=== PATIENT | female | born 1965 ===

== ENCOUNTER 2017-04-05 20:22 | Inpatient (IN) | payer MEDICARE, MEDICAID, OTHER ==
[2017-04-05] MEDS ORDERED: Lidocaine 1% Inj (20ml) IJ STA (21:05)
--- NOTE | 2017-04-05 21:12 | ED PDOC ---
Arrival/HPI - General Chief Complaint: Abnormal Skin Integrity Time Seen by Provider: 04/05/17 20:59 Historian: Patient - History of Present Illness Narrative History of Present Illness (Text): 04/05/17 21:05 A 51 year old female, whose past medical history includes diabetes, presents to the emergency department with a complaint of 2 day duration area of induration on the left suprapubic abdomen. The patient states that the area of induration has been slightly draining, and she has been changing the bandages about every hour. The patient states that she has never had the area drained in the emergency department or experienced these symptoms before. The patient denies fevers, chills, headache, dizziness, chest pain, shortness of breath, dyspnea on exertion, cough, nausea, vomiting, diarrhea, back pain, neck pain, urinary/ bowel changes, or any other complaint. PMD: Dr. Geo Brenner Time/Duration: Other (2 Days) Symptom Onset: Gradual Symptom Course: Unchanged Activities at Onset: Light Context: Home Past Medical History - Provider Review Nursing Documentation Reviewed: Yes - Infectious Disease Hx of Infectious Diseases: None - Cardiac Hx Hypertension: Yes - Pulmonary Hx Asthma: Yes Hx Sleep Apnea: Yes - Neurological Other/Comment: neuropathy - Endocrine/Metabolic Hx Diabetes Mellitus Type 2: Yes - Musculoskeletal/Rheumatological Hx Falls: Yes Hx Osteoarthritis: Yes - Psychiatric Hx Anxiety: Yes Hx Depression: Yes Hx Substance Use: No - Surgical History Hx Hysterectomy: Yes (partial) Hx Orthopedic Surgery: Yes (Right ankle surgery) - Suicidal Assessment Feels Threatened In Home Enviroment: No Family/Social History - Physician Review Nursing Documentation Reviewed: Yes Family/Social History: Other (Non- contributory) Smoking Status: Current Some Days Smoker Hx Alcohol Use: Yes (Occasionally) Frequency of alcohol use: Socially Hx Substance Use: No Hx Substance Use Treatment: No Allergies/Home Meds Allergies/Adverse Reactions: Allergies No Known Allergies Allergy (Verified 04/05/17 20:53) Home Medications: Home Meds Medication Instructions Recorded Confirmed Losartan/Hydrochlorothiazide 1 tab PO DAILY 03/01/12 04/05/17 [Hyzaar 12.5 mg-100 mg] Metformin HCl [Metformin] 1,000 mg PO BID 03/01/12 04/05/17 Review of Systems - Review of Systems Respiratory: absent: SOB Cardiovascular: absent: Chest Pain Gastrointestinal: absent: Abdominal Pain, Diarrhea, Nausea, Vomiting Skin: Abscess Neurological: absent: Headache Physical Exam Vital Signs Reviewed: Yes Vital Signs Temp Pulse Resp BP Pulse Ox 04/05/17 22:36 101.0 F H 97 H 18 119/71 99 04/05/17 20:49 98.5 F 115 H 18 129/82 100 Appearance: Positive for: Well-Appearing, Non-Toxic, Comfortable Pain Distress: None Mental Status: Positive for: Alert and Oriented X 3 - Systems Exam Extroacular Muscles: Present: EOMI Mouth: Present: Moist Mucous Membranes Pharnyx: Present: Normal Respiratory/Chest: Present: Clear to Auscultation, Accessory Muscle Use. No: Respiratory Distress Cardiovascular: Present: Regular Rate and Rhythm Abdomen: No: Tenderness, Distention Neurological: Present: GCS=15, Motor Func Grossly Intact, Normal Sensory Function Skin: Present: Warm (Left suprapubic area), Induration (4cm area of induration of the left suprapubic area. Central area appears to be draining. ) Psychiatric: Present: Alert, Oriented x 3 Medical Decision Making ED Course and Treatment: Progress Notes: 04/05/17 21:37: Procedure: Incision & Drainage Performed by the emergency provider Indication: Abscess Location: Left Suprapubic Abdomen Preparation: The area was prepped and draped in the usual sterile fashion and was cleansed with chloroprep. Local infiltration of Lidocaine 1% was used for anesthesia. Procedure: The most fluctuant portion of the abscess was incised with a #15 scalpel. Small amount of purulent material was expressed and abscess was probed to break up loculation. A dressing was applied by the RN Post-Procedure: The patient tolerated the procedure well, and there were no immediate complications. Cultured: YES 04/05/17 22:32: Will admit patient. Rectal temperature: 101. 04/05/17 23:29: Discussed case in detail with Dr. Palafox. Will admit patient to her service. - Lab Interpretations Lab Results: 04/05/17 22:00 04/05/17 22:00 Lab Results 04/05/17 22:00: Sodium 138, Chloride 103, Potassium 4.1, Carbon Dioxide 25, Anion Gap 14, BUN 15, Creatinine 1.1, Est GFR ( Amer) > 60, Est GFR (Non- Af Amer) 52, Random Glucose 133 H, Calcium 9.2, Total Bilirubin 0.7, AST 24, ALT 28, Alkaline Phosphatase 83, Total Protein 7.3, Albumin 4.0, Globulin 3.3, Albumin/Globulin Ratio 1.2 04/05/17 22:00: pO2 60 H, VBG pH 7.38, VBG pCO2 45.0, VBG HCO3 26.6, VBG Total CO2 28.0, VBG O2 Sat (Calc) 94.3 H, VBG Base Excess 1.0, VBG Potassium 4.6, Sodium 138.0, Chloride 105.0, Glucose 135 H, Lactate 1.6, FiO2 21.0, Venous Blood Potassium 4.6 04/05/17 22:00: WBC 18.4 H, RBC 4.55, Hgb 13.2, Hct 40.1, MCV 88.1, MCH 29.0, MCHC 32.9, RDW 13.7, Plt Count 362, MPV 9.8, Gran % 76.2 H, Lymph % (Auto) 15.7 L, [place] % (Auto) 7.6 H, Eos % (Auto) 0.3 L, Baso % (Auto) 0.2, Gran # 13.98 H, Lymph # 2.9, [place] # 1.4 H, Eos # 0.1, Baso # 0.03 - Medication Orders Current Medication Orders: Acetaminophen (Tylenol 325mg Tab) 650 mg PO Q4H PRN PRN Reason: Fever >100.4 F Acetaminophen (Tylenol 325mg Tab) 650 mg PO Q4 PRN PRN Reason: Pain, moderate (4-7) Vancomycin HCl 2 gm/ Sodium (Chloride) 500 mls @ 170 mls/hr IVPB ONCE ONE Stop: 04/06/17 01:41 Vancomycin HCl (Vancomycin 1gm) 1 gm in 250 mls @ 167 mls/hr IVPB Q12 [facility] Sodium Chloride (Sodium Chloride 0.45%) 1,000 mls @ 100 mls/hr IV .Q10H [facility] Piperacillin Sod/Tazobactam Sod (Zosyn 3.375 In Ns 100ml) 100 mls @ 200 mls/hr IVPB Q6 [facility] PRN Reason: Protocol Stop: 04/06/17 12:29 Insulin Human Regular (Humulin R Low) 0 units SC ACHS [facility] PRN Reason: Protocol Losartan Potassium (Cozaar) 100 mg PO DAILY [facility] Discontinued Medications Acetaminophen (Tylenol 325mg Tab) 975 mg PO STAT STA Stop: 04/05/17 22:32 Last Admin: 04/05/17 22:48 Dose: 975 mg MAR Pain/Vitals Document 04/05/17 22:48 SC (Rec: 04/05/17 22:48 SC [id number]) Pain Reassessment Is This A Pain ReAssessment? No Sleep Is patient sleeping during reassessment? No Presence of Pain Presence of Pain No Sodium Chloride (Sodium Chloride 0.9%) 1,000 mls @ 999 mls/hr IV .Q1H1M STA Stop: 04/05/17 22:51 Last Admin: 04/05/17 22:33 Dose: 999 mls/hr eMAR Start Stop Document 04/05/17 22:33 SC (Rec: 04/05/17 22:33 SC [id number]) Intravenous Solution Start Date 04/05/17 Start Time 22:33 End Date 04/05/17 End time 23:33 Total Infusion Time 60 Ampicillin Sodium/Sulbactam (Sodium 3 gm/ Sodium Chloride) 100 mls @ 100 mls/ hr IVPB STAT STA PRN Reason: Protocol Stop: 04/05/17 22:51 Last Admin: 04/05/17 23:15 Dose: 100 mls/hr eMAR Start Stop Document 04/05/17 23:15 SC (Rec: 04/06/17 00:13 SC [id number]) Intravenous Solution Start Date 04/05/17 Start Time 23:15 End Date 04/06/17 End time 00:13 Total Infusion Time 58 Sodium Chloride (Sodium Chloride 0.9%) 1,000 mls @ 999 mls/hr IV .Q1H1M STA Stop: 04/05/17 23:30 Lidocaine HCl (Lidocaine 1% (20ml)) 20 ml IJ STAT STA Stop: 04/05/17 21:06 Last Admin: 04/05/17 21:43 Dose: 20 ml Comments: Given to Vancomycin HCl (Vancomycin Inj) 2,000 mg IVPB STAT STA PRN Reason: Protocol Stop: 04/05/17 21:53 - Scribe Statement The provider has reviewed the documentation as recorded by the Keon Garcia Provider Scribe Attestation: All medical record entries made by the Keon were at my direction and personally dictated by me. I have reviewed the chart and agree that the record accurately reflects my personal performance of the history, physical exam, medical decision making, and the department course for this patient. I have also personally directed, reviewed, and agree with the discharge instructions and disposition. Disposition/Present on Arrival - Present on Arrival Any Indicators Present on Arrival: No History of DVT/PE: No History of Uncontrolled Diabetes: No Urinary Catheter: No History of Decub. Ulcer: No History Surgical Site Infection Following: None - Disposition Have Diagnosis and Disposition been Completed?: Yes Diagnosis: Abscess, Cellulitis, Sepsis Disposition: HOSPITALIZED Disposition Time: 22:32 Patient Problems: Current Active Problems Problem Status Onset Abscess Acute Cellulitis Acute Sepsis Acute Condition: STABLE
[2017-04-05] MEDS ORDERED: Lidocaine 1% Inj (20ml) ONE (21:28)
[2017-04-05] MEDS ORDERED: Sodium Chloride 0.9% 1,000 ML IV STA ×2 (21:51→22:30)
[2017-04-05] MEDS ORDERED: Vancomycin 500 mg Inj IVPB STA (21:52)
[2017-04-05 22:35] LABS: VENOUS BLOOD PH 7.38 (7.32-7.43)
[2017-04-05 22:37] LABS: BASO # 0.03 K/mm3 (0.0-2.0); BASO % 0.2 % (0.0-3.0); EOS # 0.1 (0.0-0.7); EOS % 0.3 % (1.5-5.0); GRAN # 13.98 (1.4-6.5); GRAN % 76.2 % (50.0-68.0); HEMATOCRIT 40.1 % (36.0-48.0); LYMPH # 2.9 (1.2-3.4); LYMPH % 15.7 % (22.0-35.0); MEAN CELL VOLUME 88.1 fl (80.0-105.0); MEAN CORPUSCULAR HGB CONC 32.9 g/dl (31.0-37.0); MEAN PLATELET VOLUME 9.8 fl (7.0-11.0); MONO # 1.4 (0.1-0.6); MONO % 7.6 % (1.0-6.0); RED CELL DISTRIBUTION WIDTH 13.7 % (11.5-14.5); WHITE BLOOD COUNT 18.4 10^3/ul (4.5-11.0)
[2017-04-05 22:43] LABS: ALB/GLOB RATIO 1.2 (1.1-1.8); BILIRUBIN,TOTAL 0.7 mg/dL (0.2-1.3); CALCIUM 9.2 mg/dL (8.4-10.5); GFR AFRICAN-AMERICAN > 60; GLUCOSE,RANDOM 133 mg/dL (70-110); TOTAL PROTEIN 7.3 g/dL (5.8-8.3)
[2017-04-05 22:45] LABS: ALKALINE PHOSPHATASE 83 U/L (38-126); ALT/SGPT 28 U/L (7-56); AST/SGOT 24 U/L (14-36); BLOOD UREA NITROGEN 15 mg/dL (7-21); CARBON DIOXIDE 25 mmol/L (21-33); CHLORIDE 103 mmol/L (98-107); POTASSIUM 4.1 mmol/L (3.6-5.0); SODIUM 138 mmol/L (132-148)
[2017-04-05] MEDS ORDERED: Vancomycin 2 GM in Sodium Chloride 0.9% 500 ML IVPB ONE (22:45)
[2017-04-05] MEDS ORDERED: Vancomycin 1 g Inj IVPB SCH (23:30)
[2017-04-06] MEDS: Sodium Chloride 0.45% 1,000 ML IV SCH ×3 (01:02→20:33)
[2017-04-06 01:45] VITALS: BMI 56.5
[2017-04-06] MEDS ORDERED: DiphenhydrAMINE 50 mg/ml Inj IVP STA (02:22)
[2017-04-06] MEDS: Piperacillin/Tazobact 3.375 gm 100 ML IVPB SCH ×2 (06:49→12:14)
[2017-04-06 07:15] LABS: HEMATOCRIT 39.5 % (36.0-48.0); MEAN CELL VOLUME 88.4 fl (80.0-105.0); MEAN CORPUSCULAR HEMOGLOBIN 29.1 pg (25.0-35.0); MEAN CORPUSCULAR HGB CONC 32.9 g/dl (31.0-37.0); MEAN PLATELET VOLUME 10.2 fl (7.0-11.0); RED CELL DISTRIBUTION WIDTH 13.8 % (11.5-14.5); WHITE BLOOD COUNT 17.9 10^3/ul (4.5-11.0)
[2017-04-06] MEDS: Insulin Reg-LOW-Coverage SC SCH ×4 (08:31→22:15)
[2017-04-06 09:34] LABS: BLOOD UREA NITROGEN 13 mg/dL (7-21); CALCIUM 9.3 mg/dL (8.4-10.5); CARBON DIOXIDE 22 mmol/L (21-33); CHLORIDE 107 mmol/L (98-107); GFR AFRICAN-AMERICAN > 60; GLUCOSE,RANDOM 160 mg/dL (70-110); SODIUM 139 mmol/L (132-148)
[2017-04-06] MEDS ORDERED: Vancomycin 1gm in NS 250ml 1 GM/250 ML BAG IVPB SCH (10:00)
--- NOTE | 2017-04-06 10:49 | RAD ---
HISTORY: admission COMPARISON: 01/09/2012 TECHNIQUE: Chest PA and lateral FINDINGS: LUNGS: No active pulmonary disease. PLEURA: No significant pleural effusion identified. No pneumothorax apparent. CARDIOVASCULAR: Normal. OSSEOUS STRUCTURES: No significant abnormalities. VISUALIZED UPPER ABDOMEN: Normal. OTHER FINDINGS: None. IMPRESSION: No active disease.
--- NOTE | 2017-04-06 15:05 | CARD ---
APPROVED REPORT EKG Measurement Heart [id number] <Conclusion> Normal sinus rhythm Lateral infarct, age undetermined Abnormal ECG
--- NOTE | 2017-04-06 18:02 | CP.PCM.CON ---
History of Present Illness - History of Present Illness History of Present Illness: Infectious Disease Consultation: April 06, 2017 51 yo female presenting for 2 day history of induration of the left suprapubic abdomen. There had been drainage that the patient has been changing about every hour. Patient denies fever or chills. I last saw the patient 5 years ago. The patient follow with Dr. Durbin for her PMD. The patient taken Metformin for DM treatment. PMHx: DM, HTN, HLD, morbid obsity, lower extremity edema, neuropathy, asthma, KERRIE, anxiety, depression PSHx: Partial hysterectomy and right ankle surgery. Allergies: Question of Vancomycin allergy versus red man syndrome. Social Hx: Social EtOH 1/3 ppd tobacco use No illicit drug use. Active Medications Acetaminophen (Tylenol 325mg Tab) 650 mg PO Q4H PRN PRN Reason: Fever >100.4 F Acetaminophen (Tylenol 325mg Tab) 650 mg PO Q4 PRN PRN Reason: Pain, moderate (4-7) Last Admin: 04/06/17 14:05 Dose: 650 mg Sodium Chloride (Sodium Chloride 0.45%) 1,000 mls @ 100 mls/hr IV .Q10H [facility] Last Admin: 04/06/17 10:30 Dose: 100 mls/hr Insulin Human Regular (Humulin R Low) 0 units SC ACHS [facility] PRN Reason: Protocol Last Admin: 04/06/17 16:59 Dose: 1 units Losartan Potassium (Cozaar) 100 mg PO DAILY [facility] Last Admin: 04/06/17 10:40 Dose: Not Given Family Hx: none given ROS: No fevers, chills, nausea, vomiting, diarrhea, headaches, dizziness, chest pain , melena, hematuria, hematemesis, hematochezia. Positive abdominal pain, depression, anxiety. Past Patient History - Infectious Disease Hx of Infectious Diseases: None - Past Social History Smoking Status: Current Some Days Smoker - CARDIAC Hx Hypertension: Yes - PULMONARY Hx Asthma: Yes Hx Sleep Apnea: Yes - NEUROLOGICAL Other/Comment: neuropathy - ENDOCRINE/METABOLIC Hx Diabetes Mellitus Type 2: Yes - MUSCULOSKELETAL/RHEUMATOLOGICAL Hx Falls: Yes - PSYCHIATRIC Hx Anxiety: Yes Hx Depression: Yes - SURGICAL HISTORY Hx Hysterectomy: Yes (partial) Hx Orthopedic Surgery: Yes (Right ankle surgery) Meds Allergies/Adverse Reactions: Allergies Allergy/AdvReac Type Severity Reaction Status Date / Time vancomycin Allergy RASH Verified 04/06/17 02:24 - Medications Medications: Current Medications Acetaminophen (Tylenol 325mg Tab) 650 mg PO Q4H PRN PRN Reason: Fever >100.4 F Acetaminophen (Tylenol 325mg Tab) 650 mg PO Q4 PRN PRN Reason: Pain, moderate (4-7) Last Admin: 04/06/17 14:05 Dose: 650 mg Sodium Chloride (Sodium Chloride 0.45%) 1,000 mls @ 100 mls/hr IV .Q10H [facility] Last Admin: 04/06/17 10:30 Dose: 100 mls/hr Insulin Human Regular (Humulin R Low) 0 units SC ACHS [facility] PRN Reason: Protocol Last Admin: 04/06/17 16:59 Dose: 1 units Losartan Potassium (Cozaar) 100 mg PO DAILY [facility] Last Admin: 04/06/17 10:40 Dose: Not Given Physical Exam - Constitutional Appears: Non-toxic, No Acute Distress, Chronically Ill - Head Exam Head Exam: ATRAUMATIC, NORMOCEPHALIC - Eye Exam Eye Exam: EOMI, PERRL Pupil Exam: NORMAL ACCOMODATION, PERRL - ENT Exam ENT Exam: Mucous Membranes Moist, Normal External Ear Exam, TM's Normal Bilaterally - Neck Exam Neck exam: Positive for: Full Rom, Normal Inspection - Respiratory Exam Respiratory Exam: Clear to Auscultation Bilateral, NORMAL BREATHING PATTERN. absent: Rales, Rhonchi, Wheezes - Cardiovascular Exam Cardiovascular Exam: REGULAR RHYTHM, RRR, +S1, +S2 - GI/Abdominal Exam GI & Abdominal Exam: Normal Bowel Sounds, Soft, Tenderness. absent: Distended Additional comments: s/p I&D in ER to left suprapubic abdomen. - Extremities Exam Extremities exam: Positive for: full ROM, normal inspection - Neurological Exam Neurological exam: Alert, CN II-XII Intact, Oriented x3 - Psychiatric Exam Psychiatric exam: Normal Affect, Normal Mood - Skin Skin Exam: Intact, Normal Color Results - Vital Signs Recent Vital Signs: Last Vital Signs Temp 98.2 F 04/06/17 09:29 Pulse 77 04/06/17 10:40 Resp 20 04/06/17 09:29 BP 102/56 L 04/06/17 10:40 Pulse Ox 98 04/06/17 09:29 - Labs Result Diagrams: 04/06/17 05:00 12/16/17 06:15 Labs: Laboratory Results - last 24 hr 04/06/17 04/06/17 04/06/17 05:00 06:15 07:39 WBC 17.9 H RBC 4.47 Hgb 13.0 Hct 39.5 MCV 88.4 MCH 29.1 MCHC 32.9 RDW 13.8 Plt Count 344 MPV 10.2 Sodium 139 Potassium 4.0 Chloride 107 Carbon Dioxide 22 Anion Gap 14 BUN 13 Creatinine 0.8 Est GFR ( Amer) > 60 Est GFR (Non-Af Amer) > 60 POC Glucose (mg/dL) 171 H Random Glucose 160 H Calcium 9.3 04/06/17 04/06/17 11:31 16:06 WBC RBC Hgb Hct MCV MCH MCHC RDW Plt Count MPV Sodium Potassium Chloride Carbon Dioxide Anion Gap BUN Creatinine Est GFR ( Amer) Est GFR (Non-Af Amer) POC Glucose (mg/dL) 177 H 157 H Random Glucose Calcium Assessment & Plan - Assessment and Plan (Free Text) Assessment: 51 yo female with left suprapubic abscess requiring I&D. Patient developed redness of skin and itchiness when given Vancomycin. Unclear if this was an allergic reaction versus Red-Man syndrome associated with rapid infusion of Vancomycin IV. Rash is not present as time of my exam. Patient did not have an allergy to Vancomycin when I last saw the patient 5 yeas ago. We will start Teflaro for now and monitor. Strongly suggest Surgery evaluation to check depth of wound. Obtain CT scan of the area. The patient does states chills and subjective fevers. Supportive care. Thank you for allowing me to participate in the care of the patient, we will follow with you.
[2017-04-06] MEDS: Ceftaroline 600 MG in Sodium Chloride 0.9% 100 ML IVPB SCH (22:14)
--- NOTE | 2017-04-06 23:16 | HP ---
HISTORY OF PRESENT ILLNESS: This 51-year-old female was examined at her bedside. Her case was reviewed in detail with herself and her nurse, Va, registered nurse. The patient presented to the [facility] ER with a chief complaint of left lower abdominal wall cellulitis of past several days' duration affecting her left lower abdominal wall and suprapubic abdominal wall as well. The patient is morbidly obese. 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 The patient states that she noticed abdominal discomfort in the setting of abdominal wall cellulitis and came to the emergency room for further evaluation of the above. Of note, while in the emergency room, Dr. Eliel Milton performed an I&D of a left suprapubic furuncle, during which a small amount of purulent material was expressed and sent for culture and sensitivity. In the emergency room, the patient was noted to have a temperature of 101 and a white blood cell count of 18,400. She is admitted for further evaluation of the above. REVIEW OF SYSTEMS: CONSTITUTIONAL: The patient admitted to fever and chills. HEAD: No headache, no seizure. EYES: No change in visual acuity. EAR: No hearing loss. THROAT: No swallowing difficulty. NECK: No stiffness. CARDIAC: Chronic hypertension. No myocardial infarction. PULMONARY: No history of COPD. GI: No dyspepsia. : No dysuria. EMAIL [employer]PAIGN SPECIALIST: Hysterectomy. VASCULAR: No claudication. MUSCULOSKELETAL: Right ankle arthritis and status post surgery. SKIN: As per HPI. NEUROLOGIC: No strokes. ENDOCRINOLOGICAL: Admits to pnj-tjumocr-lninyrtne diabetes mellitus, on outpatient metformin for over 5 years. PSYCHOLOGICAL; Chronic anxiety. FAMILY HISTORY: Father of complications of atherosclerotic heart disease, diabetes, chronic renal failure. Mother alive with dementia. SOCIAL HISTORY: The patient is a smoker, social drinker, not a IV drug misuser. ALLERGIES: DENIES ALLERGIES TO MEDICATION: PHYSICAL EXAMINATION: VITAL SIGNS: Temperature 98.2, respirations 20, pulse 73, blood pressure 102/56, pulse ox 98% on room air. HEENT: Head; normocephalic, atraumatic. Eyes: No icterus. Ears: Clear. Throat: Noninjected. NECK: Supple. HEART: Regular S1, S2. LUNGS: Clear. ABDOMEN: Obese. There is a left abdominal wall cellulitis and suprapubic erythema. The area under her bandage was examined and it is expressing a small amount of serosanguineous drainage. EXTREMITIES: No clubbing, cyanosis or edema. VASCULAR: Legs warm to touch. PSYCHOLOGICAL: Alert and oriented x3. NEUROLOGIC: Intact. LABORATORY DATA: White count 17,900, hemoglobin 13, hematocrit 39.5, platelets 344,000. Sodium 139, K 4.0, chloride 107, bicarb 22, BUN 13, creatinine 0.8, random blood sugar 171. Bilirubin 0.7, AST 24, ALT 28, and alk phos 83. Chest x-ray shows no active disease. IMPRESSION: A 51-year-old morbidly obese female with longstanding history of degenerative arthritis, sdw-ygjucmm-grahqvkry diabetes mellitus, chronic hypertension, now with abdominal wall cellulitis secondary to morbid obesity and skin folds obstructing her abdominal wall skin. Also with questionable reaction to vancomycin that may have been too rapidly infused last evening, during which the patient experienced some skin redness, but no shortness of breath or anaphylaxis. PLAN: At present is to obtain blood and urine cultures. Wound cultures are pending. The patient will continue on 0.45 saline at 100 mL/hour. She continues on Cozaar 100 mg p.o. daily. The patient was given Benadryl and one dose of IV Solu-Medrol and I have asked her nurse to discuss further antibiotic choices with Dr. Mikey Wagner from Infectious Disease given her reaction to the vancomycin last evening. The patient did receive one dose of Zosyn today and further antibiotics will be outlined by him today. She continues on cleansing the wound with sterile saline and dry sterile dressing daily, heart-healthy diabetic diet. All of the above was reviewed in detail with the patient and nursing. Greater than sixty minutes was spent in the care, review of x-rays, labs, emergency room reports, and nursing notes regarding this patient. All questions were answered. Kenna Palafox MD [facility]
[2017-04-07] MEDS: Insulin Reg-LOW-Coverage SC SCH ×4 (08:30→22:00)
[2017-04-07] MEDS: Sodium Chloride 0.45% 1,000 ML IV SCH (10:21)
--- NOTE | 2017-04-07 10:21 | CT ---
PROCEDURE: CT Abdomen and Pelvis with contrast HISTORY: Abscess COMPARISON: None. TECHNIQUE: Contrast dose: 130 cc of Omnipaque 350 Radiation dose: Total exam DLP = 1748 mGy-cm. This CT exam was performed using one or more of the following dose reduction techniques: Automated exposure control, adjustment of the mA and/or kV according to patient size, and/or use of iterative reconstruction technique. FINDINGS: LOWER THORAX: Unremarkable. LIVER: Unremarkable. No gross lesion or ductal dilatation. GALLBLADDER AND BILE DUCTS: Unremarkable. PANCREAS: Unremarkable. No gross lesion or ductal dilatation. SPLEEN: Unremarkable. ADRENALS: Unremarkable. No mass. KIDNEYS AND URETERS: Unremarkable. No hydronephrosis. No solid mass. VASCULATURE: Unremarkable. No aortic aneurysm. BOWEL: Unremarkable. No obstruction. No gross mural thickening. APPENDIX: Normal appendix. PERITONEUM: Unremarkable. No free fluid. No free air. LYMPH NODES: Unremarkable. No enlarged lymph nodes. BLADDER: Unremarkable. REPRODUCTIVE: Unremarkable. BONES: No acute fracture. OTHER FINDINGS: None. IMPRESSION: No acute findings. No evidence of inflammation or abscess
[2017-04-07] MEDS: Ceftaroline 600 MG in Sodium Chloride 0.9% 100 ML IVPB SCH ×2 (10:22→21:14)
--- NOTE | 2017-04-07 14:52 | CP.PCM.CON ---
History of Present Illness - History of Present Illness History of Present Illness: General Surgery Consult Note for Dr. Anand Reason for Consult: Lower abdominal wall/suprapubic abscess 51 F with PMH DM, HTN, HLD, morbid obesity, asthma, KERRIE, anxiety, depression presents for complaint of left lower abdominal wall/suprapubic abscess. Patient states that she has had it since saturday. She came to the ED and they did a bedside I&D. Over the next 2 days, the area became larger and indurated. Patient states that she has had a few abdominal wall abscesses in the past but nothing like this. SHe reports purulent drainage and frequent dressing changes. She states it is painful to touch. She rates pain as moderate. She describes the pain as intermittent and sharp located in left lower abdomen/suprapubic area. Movement and palpation exacerbates it while nothing specifically alleviates it. Denies fever/chills, chest pain, SOB, palpitations, nausea/ vomiting, diarrhea, constipation, incontinence, urinary symptoms. PMD: Dr. Durbin PMH: DM, HTN, HLD, morbid obesity, asthma, KERRIE, anxiety, depression Meds: As per EMR Allergy: Vancomycin (?red man syndrome) PSH: Partial hysterectomy, right ankle ORIF FH: unknown Social: smokes 1/3 pack per day, occasional EtOH, denies illicit drug use Review of Systems - Review of Systems All systems: reviewed and no additional remarkable complaints except (as per HPI ) Past Patient History - Infectious Disease Hx of Infectious Diseases: None - Past Social History Smoking Status: Current Some Days Smoker - CARDIAC Hx Hypertension: Yes - PULMONARY Hx Asthma: Yes Hx Sleep Apnea: Yes - NEUROLOGICAL Other/Comment: neuropathy - ENDOCRINE/METABOLIC Hx Diabetes Mellitus Type 2: Yes - MUSCULOSKELETAL/RHEUMATOLOGICAL Hx Falls: Yes - PSYCHIATRIC Hx Anxiety: Yes Hx Depression: Yes - SURGICAL HISTORY Hx Hysterectomy: Yes (partial) Hx Orthopedic Surgery: Yes (Right ankle surgery) Meds Allergies/Adverse Reactions: Allergies Allergy/AdvReac Type Severity Reaction Status Date / Time vancomycin Allergy RASH Verified 04/06/17 02:24 - Medications Medications: Current Medications Acetaminophen (Tylenol 325mg Tab) 650 mg PO Q4H PRN PRN Reason: Fever >100.4 F Acetaminophen (Tylenol 325mg Tab) 650 mg PO Q4 PRN PRN Reason: Pain, moderate (4-7) Last Admin: 04/06/17 14:05 Dose: 650 mg Sodium Chloride (Sodium Chloride 0.45%) 1,000 mls @ 100 mls/hr IV .Q10H [facility] Last Admin: 04/07/17 10:21 Dose: 100 mls/hr Ceftaroline Fosamil 600 mg/ (Sodium Chloride) 100 mls @ 100 mls/hr IVPB Q12 [facility] PRN Reason: Protocol Stop: 04/11/17 22:01 Last Admin: 04/07/17 10:22 Dose: 100 mls/hr Insulin Human Regular (Humulin R Low) 0 units SC ACHS [facility] PRN Reason: Protocol Last Admin: 04/07/17 08:30 Dose: Not Given Losartan Potassium (Cozaar) 100 mg PO DAILY [facility] Last Admin: 04/07/17 10:20 Dose: 100 mg Sodium Chloride ([place] Nasal [place]) 0 ml NS Q6H PRN PRN Reason: Nasal congestion Physical Exam - Constitutional Appears: Well, No Acute Distress - Head Exam Head Exam: ATRAUMATIC, NORMOCEPHALIC - Eye Exam Eye Exam: EOMI, Normal appearance Pupil Exam: PERRL - ENT Exam ENT Exam: Mucous Membranes Moist - Respiratory Exam Respiratory Exam: NORMAL BREATHING PATTERN - Cardiovascular Exam Cardiovascular Exam: REGULAR RHYTHM - GI/Abdominal Exam GI & Abdominal Exam: Soft, Tenderness (left suprapubic area). absent: Distended , Firm, Guarding, Rebound, Rigid Additional comments: left lower abdomen/suprapubic area of induration and erythema measuring 5 cm x 2 cm, tender to palpation with previous I&D incision draining purulent material - Extremities Exam Extremities exam: Positive for: normal capillary refill, pedal pulses present. Negative for: calf tenderness - Back Exam Back exam: absent: CVA tenderness (L), CVA tenderness (R) - Neurological Exam Neurological exam: Alert, CN II-XII Intact, Oriented x3 - Psychiatric Exam Psychiatric exam: Normal Affect, Normal Mood - Skin Skin Exam: Dry, Erythema, Warm Results - Vital Signs Recent Vital Signs: Last Vital Signs Temp 98.4 F 04/07/17 09:15 Pulse 68 04/07/17 09:15 Resp 20 04/07/17 09:15 BP 146/85 04/07/17 09:15 Pulse Ox 96 04/07/17 09:15 - Labs Result Diagrams: 04/06/17 05:00 12/16/17 06:15 Labs: Laboratory Results - last 24 hr 04/06/17 04/06/17 04/07/17 16:06 21:04 06:48 POC Glucose (mg/dL) 157 H 175 H 100 04/07/17 11:58 POC Glucose (mg/dL) 98 Assessment & Plan - Assessment and Plan (Free Text) Assessment: 51 F with left lower abdominal wall/suprapubic abscess -Continue IV antibiotics as per ID -IV fluids -Analgesics PRN -Warm compresses -Will discuss with Dr. Cheng Hall PGY1
--- NOTE | 2017-04-07 18:35 | CP.PCM.PN ---
Subjective - Date & Time of Evaluation Date of Evaluation: 04/07/17 Time of Evaluation: 17:00 - Subjective Subjective: Infectious Disease Follow Up: April 07, 2017 51 yo female who is morbidly obese presenting for 2 day history of induration of the left suprapubic abdomen. There had been drainage that the patient has been changing about every hour. Patient denies fever or chills. I last saw the patient 5 years ago. The patient follows with Dr. Durbin for her PMD. The patient taking Metformin for DM treatment. CT scan did not show abscess or inflammatory process. Surgery has evaluated the patient. Cultures negative to date. Remains on IV antibiotics. Objective - Vital Signs/Intake and Output Vital Signs (last 24 hours): Temp Pulse Resp BP Pulse Ox 98.7 F 66 18 122/44 L 97 04/07/17 16:00 04/07/17 16:00 04/07/17 16:00 04/07/17 16:00 04/07/17 16:00 Intake and Output: 04/07/17 04/07/17 06:59 18:59 Intake Total 840 960 Balance 840 960 - Medications Medications: Current Medications Acetaminophen (Tylenol 325mg Tab) 650 mg PO Q4H PRN PRN Reason: Fever >100.4 F Acetaminophen (Tylenol 325mg Tab) 650 mg PO Q4 PRN PRN Reason: Pain, moderate (4-7) Last Admin: 04/06/17 14:05 Dose: 650 mg Sodium Chloride (Sodium Chloride 0.45%) 1,000 mls @ 100 mls/hr IV .Q10H [facility] Last Admin: 04/07/17 10:21 Dose: 100 mls/hr Ceftaroline Fosamil 600 mg/ (Sodium Chloride) 100 mls @ 100 mls/hr IVPB Q12 [facility] PRN Reason: Protocol Stop: 04/11/17 22:01 Last Admin: 04/07/17 10:22 Dose: 100 mls/hr Insulin Human Regular (Humulin R Low) 0 units SC ACHS [facility] PRN Reason: Protocol Last Admin: 04/07/17 16:29 Dose: Not Given Losartan Potassium (Cozaar) 100 mg PO DAILY [facility] Last Admin: 04/07/17 10:20 Dose: 100 mg Sodium Chloride ([place] Nasal [place]) 0 ml NS Q6H PRN PRN Reason: Nasal congestion - Labs Labs: 04/06/17 05:00 04/06/17 06:15 - Constitutional Appears: Non-toxic, No Acute Distress, Chronically Ill - Head Exam Head Exam: ATRAUMATIC, NORMOCEPHALIC - Eye Exam Eye Exam: EOMI, PERRL Pupil Exam: NORMAL ACCOMODATION, PERRL - ENT Exam ENT Exam: Mucous Membranes Moist, Normal External Ear Exam, TM's Normal Bilaterally - Neck Exam Neck Exam: Full ROM, Normal Inspection - Respiratory Exam Respiratory Exam: Clear to Ausculation Bilateral, NORMAL BREATHING PATTERN. absent: Rales, Rhonchi, Wheezes - Cardiovascular Exam Cardiovascular Exam: REGULAR RHYTHM, RRR, +S1, +S2 - GI/Abdominal Exam GI & Abdominal Exam: Soft, Tenderness, Normal Bowel Sounds. absent: Distended Additional comments: s/p I&D in ER to left suprapubic abdomen - Extremities Exam Extremities Exam: Full ROM, Normal Inspection - Neurological Exam Neurological Exam: Alert, Awake, CN II-XII Intact, Oriented x3 - Psychiatric Exam Psychiatric exam: Normal Affect, Normal Mood - Skin Skin Exam: Intact, Normal Color Assessment and Plan - Assessment and Plan (Free Text) Assessment: 51 yo female with left suprapubic abscess requiring I&D. Patient developed redness of skin and itchiness when given Vancomycin. Unclear if this was an allergic reaction versus Red-Man syndrome associated with rapid infusion of Vancomycin IV. Rash is not present as time of my exam. Patient did not have an allergy to Vancomycin when I last saw the patient 5 yeas ago. We will start Teflaro for now and monitor. Strongly suggest Surgery evaluation to check depth of wound. Obtain CT scan of the area. The patient does states chills and subjective fevers. Continue Teflaro. Supportive care. Thank you for allowing me to participate in the care of the patient, we will follow with you.
--- NOTE | 2017-04-08 00:54 | PN ---
DATE: 04/07/2017 SUBJECTIVE: This 51-year-old female was examined at the bedside. This case was reviewed in detail with her nurse, Claudette Sharma, registered nurse. The patient remains hospitalized on IV antibiotics for a newly noted abdominal wall cellulitis, and she has been seen by Dr. Mikey Wagner from Infectious Disease. Given her adverse reaction to IV vancomycin where she became red but did not experience anaphylaxis, he has opted to treat the patient with Teflaro 600 mg IV q. 12 h. The patient's fever is resolving. She is tolerating diet and medication. She is on IV fluids and able to ambulate to the bathroom with assistance. There have been no reports of fever or chills and an abdominal CT scan was completed that was reviewed by Dr. Rodríguez from Radiology. It did not show any evidence of abscess formation or soft skin invasion by the abdominal wall cellulitis and a surgical consultation with Dr. Nikolay Anand has been requested for completeness sake. This was discussed with the patient at her bedside. Of note the area on her abdominal wall where she had an I and D by Dr. Eliel Milton in the ER continues to drain a serosanguineous fluid, but the area in question is much less erythematous and swollen. PHYSICAL EXAMINATION: VITAL SIGNS: Temperature is 98.4, previously 99.6, respirations 20, pulse 68, blood pressure 146/85 with a pulse ox of 97% room air. HEENT: Head normocephalic, atraumatic. Eyes: No icterus. Ears: Clear. Throat: Noninjected. NECK: Supple. HEART: Regular S1, S2. LUNGS: Clear. ABDOMEN: Obese. Marked improvement in erythema and warmth in the area of cellulitis on her left lower abdominal wall and suprapubic area. SKIN: Without breakdown. VASCULAR: Legs warm to touch. PSYCHOLOGICAL: Alert and oriented x3. NEUROLOGIC: Grossly intact. LABORATORY DATA: CBC white count 17,900, hemoglobin 13, hematocrit 39.5, platelets 344,000. Sodium 139, K 4.0, chloride 107, bicarb 22, BUN 13, creatinine 0.8, random blood sugar 115. All liver function testing were normal including bilirubin 0.7, AST 24, ALT 28, and alk phos 83. Chest x-ray showed no active disease. EKG showed normal sinus rhythm with nonspecific ST-T wave changes and abdominal pelvic CT was reviewed. Gallbladder was unremarkable. Kidney showed no hydronephrosis or solid mass. Appendix was normal. Peritoneum was normal. No enlarged lymph nodes were noted. There were no acute findings and no evidence of inflammation or abscess. IMPRESSION: A 51-year-old female with morbid obesity and admission for abdominal wall cellulitis that required incision and drainage by emergency room physician with blood culture showing no growth to date, with comorbidities of chronic hypertension, diabetes mellitus type 2, degenerative arthritis, and history of right ankle surgery and hysterectomy. PLAN: The plan at present is to continue heart-healthy diabetic diet. She continues on Tylenol 650 mg p.o. q. 4 h. p.r.n. pain or temperature greater than 101. She continues on Teflaro 600 mg IV q. 12 h. I have ordered sterile saline nasal spray as requested by the patient for nasal dryness. She is on a low-dose insulin protocol before meals and at bedtime, Cozaar 100 mg p.o. daily and 0.45 saline at 100 mL/hour. She is scheduled to have a basic metabolic panel and CBC in the a.m. Nursing staff has been instructed by Surgery to apply warm soaks to the affected abdominal wall skin area every hour. The patient will be ambulated to the bathroom and has been scheduled for physical therapy for completeness sake and will probably require Transitional Care Rehab for continued IV antibiotics and reconditioning. Greater than 35 minutes was spent in the care, management, ordering of testings and labs and medication and discussion of this case with Infectious Disease, Surgery and nursing as well as the patient. All questions were answered. Kenna Palafox MD MTDDa
[2017-04-08 01:16] LABS: URINE BILIRUBIN NEGATIVE (NEGATIVE); URINE BLOOD NEGATIVE (NEGATIVE); URINE GLUCOSE (UA) NEGATIVE (NEGATIVE); URINE KETONE NEGATIVE (NEGATIVE); URINE LEUKOCYTE ESTERASE NEGATIVE Leu/uL (NEGATIVE); URINE PROTEIN NEGATIVE mg/dL (<30 mg/dL); URINE UROBILINOGEN 0.2 E.U./dL (<1 E.U./dL)
[2017-04-08 01:18] LABS: URINE APPEARANCE CLEAR (CLEAR); URINE COLOR YELLOW (YELLOW)
[2017-04-08 07:10] LABS: MEAN CELL VOLUME 89.5 fl (80.0-105.0); MEAN CORPUSCULAR HEMOGLOBIN 27.9 pg (25.0-35.0); MEAN CORPUSCULAR HGB CONC 31.2 g/dl (31.0-37.0); MEAN PLATELET VOLUME 9.9 fl (7.0-11.0); WHITE BLOOD COUNT 11.3 10^3/ul (4.5-11.0)
[2017-04-08 07:21] LABS: BLOOD UREA NITROGEN 14 mg/dL (7-21); CALCIUM 8.8 mg/dL (8.4-10.5); CARBON DIOXIDE 27 mmol/L (21-33); CHLORIDE 106 mmol/L (98-107); GFR AFRICAN-AMERICAN > 60; GLUCOSE,RANDOM 113 mg/dL (70-110); POTASSIUM 3.8 mmol/L (3.6-5.0); SODIUM 141 mmol/L (132-148)
[2017-04-08] MEDS: Insulin Reg-LOW-Coverage SC SCH ×3 (08:40→16:30)
[2017-04-08 08:53] VITALS: PULSE 65; RESP 20; TEMP 98.4
[2017-04-08 09:27] VITALS: BP 119/60; O2SAT 98
[2017-04-08] MEDS: Ceftaroline 600 MG in Sodium Chloride 0.9% 100 ML IVPB SCH (10:28)
--- NOTE | 2017-04-08 12:34 | CP.PCM.PN ---
Subjective - Date & Time of Evaluation Date of Evaluation: 04/08/17 Time of Evaluation: 07:00 - Subjective Subjective: General Surgery- Dr. Anand Patient seen and examined at bedside this AM. No acute events overnight. having some nausea, no vomiting. Denies current abdominal pain, fevers, chills, chest pain, shortness of breath. tolerating current diet. Objective - Vital Signs/Intake and Output Vital Signs (last 24 hours): Temp Pulse Resp BP Pulse Ox 98.4 F 65 20 119/60 98 04/08/17 08:00 04/08/17 08:00 04/08/17 08:00 04/08/17 08:00 04/08/17 08:00 Intake and Output: 04/08/17 04/08/17 06:59 18:59 Intake Total 240 Balance 240 - Medications Medications: Current Medications Acetaminophen (Tylenol 325mg Tab) 650 mg PO Q4H PRN PRN Reason: Fever >100.4 F Last Admin: 04/08/17 08:09 Dose: 650 mg Acetaminophen (Tylenol 325mg Tab) 650 mg PO Q4 PRN PRN Reason: Pain, moderate (4-7) Last Admin: 04/07/17 21:09 Dose: 650 mg Gabapentin (Neurontin) 300 mg PO HS [facility] PRN Reason: Protocol Ceftaroline Fosamil 600 mg/ (Sodium Chloride) 100 mls @ 100 mls/hr IVPB Q12 [facility] PRN Reason: Protocol Stop: 04/11/17 22:01 Last Admin: 04/08/17 10:28 Dose: 100 mls/hr Ibuprofen (Motrin Tab) 400 mg PO Q6H PRN PRN Reason: Pain, moderate (4-7) Insulin Human Regular (Humulin R Low) 0 units SC ACHS [facility] PRN Reason: Protocol Last Admin: 04/08/17 12:13 Dose: Not Given Losartan Potassium (Cozaar) 100 mg PO DAILY [facility] Last Admin: 04/08/17 10:28 Dose: 100 mg Sodium Chloride ([place] Nasal [place]) 0 ml NS Q6H PRN PRN Reason: Nasal congestion Zolpidem Tartrate (Ambien) 5 mg PO HS PRN; Protocol PRN Reason: Insomnia - Labs Labs: 04/08/17 06:30 04/08/17 06:30 - Constitutional Appears: Non-toxic, No Acute Distress - Respiratory Exam Respiratory Exam: NORMAL BREATHING PATTERN. absent: Respiratory Distress - Cardiovascular Exam Cardiovascular Exam: +S1, +S2. absent: Bradycardia, Tachycardia - GI/Abdominal Exam GI & Abdominal Exam: Soft. absent: Distended, Firm, Guarding, Rigid, Tenderness Additional comments: abscess collection close to the pelvic region with active purulent drainage palpable new abscess inferior portion of left side pannus - Extremities Exam Extremities Exam: Normal Inspection. absent: Calf Tenderness - Neurological Exam Neurological Exam: Alert, Awake, Oriented x3 - Psychiatric Exam Psychiatric exam: Normal Affect - Skin Skin Exam: Dry, Warm Assessment and Plan - Assessment and Plan (Free Text) Assessment: 51F w/ left side superficial infra-pannus abscess actively draining Plan: - warm compress - bedside I&D today - needle aspiration for abscess forming cephalad to original abscess - c/w abx - medical management per primary team - further recs per Dr. Anand surgical attending Jake Dover PGY1
[2017-04-08 12:47] LABS: IRON 57 ug/dL (45-180)
[2017-04-08 17:27] LABS: FOLATE 10.2 ng/mL
--- NOTE | 2017-04-08 20:01 | CP.PCM.PN ---
Subjective - Date & Time of Evaluation Date of Evaluation: 04/08/17 Time of Evaluation: 18:00 - Subjective Subjective: Infectious Disease Follow Up: April 08, 2017 51 yo female who is morbidly obese presenting for 2 day history of induration of the left suprapubic abdomen. There had been drainage that the patient has been changing about every hour. Patient denies fever or chills. I last saw the patient 5 years ago. The patient follows with Dr. Durbin for her PMD. The patient taking Metformin for DM treatment. CT scan did not show abscess or inflammatory process. Surgery has evaluated the patient. Cultures negative to date. Remains on IV antibiotics. Patient with one ascess site I&D in ER. Needle aspiration for another site next to current draining abscess. Objective - Vital Signs/Intake and Output Vital Signs (last 24 hours): Temp Pulse Resp BP Pulse Ox 98.4 F 65 20 119/60 98 04/08/17 08:00 04/08/17 08:00 04/08/17 08:00 04/08/17 08:00 04/08/17 08:00 Intake and Output: 04/08/17 04/09/17 18:59 06:59 Intake Total 300 Balance 300 - Labs Labs: 04/08/17 06:30 04/08/17 06:30 - Constitutional Appears: Non-toxic, No Acute Distress, Chronically Ill - Head Exam Head Exam: ATRAUMATIC, NORMOCEPHALIC - Eye Exam Eye Exam: EOMI, PERRL Pupil Exam: NORMAL ACCOMODATION, PERRL - ENT Exam ENT Exam: Mucous Membranes Moist, Normal External Ear Exam, TM's Normal Bilaterally - Neck Exam Neck Exam: Full ROM, Normal Inspection - Respiratory Exam Respiratory Exam: Clear to Ausculation Bilateral, NORMAL BREATHING PATTERN. absent: Rales, Rhonchi, Wheezes - Cardiovascular Exam Cardiovascular Exam: REGULAR RHYTHM, RRR, +S1, +S2 - GI/Abdominal Exam GI & Abdominal Exam: Soft, Tenderness, Normal Bowel Sounds. absent: Distended Additional comments: s/p I&D in ER to left suprapubic abdomen for cutaneous abdominal abscess. The patient with a pannus. - Extremities Exam Extremities Exam: Full ROM, Normal Inspection - Neurological Exam Neurological Exam: Alert, Awake, CN II-XII Intact, Oriented x3 - Psychiatric Exam Psychiatric exam: Normal Affect - Skin Additional comments: As above. Assessment and Plan - Assessment and Plan (Free Text) Assessment: 51 yo female with left suprapubic abscess requiring I&D. Patient developed redness of skin and itchiness when given Vancomycin. Unclear if this was an allergic reaction versus Red-Man syndrome associated with rapid infusion of Vancomycin IV. Rash is not present as time of my exam. Patient did not have an allergy to Vancomycin when I last saw the patient 5 yeas ago. We will start Teflaro for now and monitor. Strongly suggest Surgery evaluation to check depth of wound. Obtain CT scan of the area. The patient does states chills and subjective fevers. Continue Teflaro for antibiotic treatment on this patient. Supportive care. Thank you for allowing me to participate in the care of the patient, we will follow with you.
--- NOTE | 2017-04-09 08:17 | DS ---
FINAL DIAGNOSES: Cellulitis of the abdominal wall, morbid obesity, chronic insomnia, chronic hypertension, type 2 diabetes mellitus, spinal arthritis, degenerative arthritis, and peripheral neuropathy. DISPOSITION: Transitional Care Rehab. CONSULTANTS: Dr. Wagner from Infectious Disease and Dr. Nikolay Anand from Surgery. DISCHARGE DIET: Heart-healthy diabetic. DISCHARGE MEDICATIONS: Teflaro 600 mg IV q. 12, Neurontin 300 mg p.o. at bedtime, Motrin 400 mg p.o. q. 6 hours p.r.n. severe pain, regular low-dose insulin protocol a.c. meals at bedtime, Ambien 5 mg p.o. at bedtime. p.r.n. insomnia. In summary, this 51-year-old female was admitted to the [facility] with abdominal wall cellulitis in the setting of morbid obesity and abdominal wall skin folds creating a medium for folliculitis and cellulitis. The patient was seen in consultation by Dr. Wagner from Infectious Disease and Dr. Nikolay Anand from Surgery. The patient was prescribed Teflaro 600 mg IV q. 12 hours as well as warm soaks to the affected skin wall area. It should be noted that the patient underwent CT of the abdomen and pelvis, which failed to show any evidence of abscess or penetrating abdominal wall cellulitis and at the time of her discharge, her vital signs were temperature 98.4, respirations 20, pulse 65, blood pressure 119/60 with a pulse ox of 98% on room air. Her white count initially was 18,400. It has decreased to 11,300. Her hemoglobin was 13.2, it is presently 10.6 probably on the basis of delusional anemia secondary to IV fluid hydration, platelets of 324,000. Sodium 141, K 3.8, chloride 106, bicarb 27, BUN 14, creatinine 0.9, random blood sugar is 120. Urinalysis was unremarkable. Blood cultures showed no growth at 48 hours. The patient will be transferred to [facility]. She will have her IV fluids stopped. She will have a ferritin, folic acid level, iron, TIBC and vitamin B12 levels done for completeness sake. Repeat CBC has been ordered for the a.m. The patient will continue on Ambien 5 mg p.o. at bedtime. p.r.n. insomnia, Cozaar 100 mg p.o. daily, regular low-dose insulin coverage a.c. meals and at bedtime, Motrin 400 mg p.o. q. 6 hours p.r.n. pain, Neurontin 300 mg p.o. at bedtime, and Teflaro 600 mg IV q. 12. She will receive physical and occupational therapy. Warm soaks for abdominal wall. Heart-healthy diabetic diet and ultimate plan will be for discharge to home when medically stable. Greater than 35 minutes was spent in the care, counseling, management, review of x-rays, labs and medications with her nursing staff today and the patient. All questions were answered, Kenna Palafox MD MTDD
--- NOTE | 2017-04-09 10:52 | CON ---
DATE: 04/08/2017 HISTORY OF PRESENT ILLNESS: Vielka Garcia is seen on the floor. There is an abscess on the left groin. It does not seem to be active at the moment. It was drained in the emergency room several days ago. CAT scan shows no residual infection. The patient should be treated with local care and oral IV antibiotics, but there is no surgical intervention necessary. INCOMPLETE DICTATION. Nikolay Anand MD
--- NOTE | 2017-04-09 15:20 | PQF SEPSIS ---
04/09/17 Dr. Palafox, Acute sepsis is documented on ED notes only. Was sepsis ruled out, ruled in, undetermined, other? Thank you. Clarification of your documentation is requested to better reflect the severity of illness and intensity of treatment of your patient. Indicators present [] Temp < 96.8 or > 100.4 [x] WBC count > 12,000/mm3 or <000/mm3 or 10% immature neutrophils [] Heart Rate > 90 [] Respiratory Rate > 20 [] Fever or hypothermia [] Chills [] Positive blood cultures [] Hypotension [] Metabolic acidosis (Elevated lactate level, anion gap or reduced blood pH) [] Acute confusion /Altered Mental Status [] Shock [] Other: [] Location in the medical record that reflects the above clinical findings: [] Treatment Provided: [] PHYSICIAN'S RESPONSE Based on your medical judgment of the clinical indicators outlined above, are you treating this patient for a known or suspected: [] Sepsis / Septicemia Please specify organism if known [] [x] SIRS (Systemic Inflammatory Response Syndrome) [] Severe Sepsis (Sepsis with Associated Organ Dysfunction) [] Fever of Unknown Origin [] Other, please indicate: [] [] If Unable to Determine, please check the box, sign and date. Present On Admission (POA) Indicator: [x] Present at the time of admission [] Not present at the time of admission [] Clinically Undetermined In responding to this query, please exercise your independent professional judgment. The fact that a question is asked does not imply that any particular answer is desired or expected. Thank you for your clarification on this documentation. If you have any questions please call:[ ] * Thank you, [ ] health associate TAMRA
== END 2017-04-08 18:26 | DRG 603 ==
LOC: ED 20:22 → ERH 23:29 → 5RNO 04-06 01:11
PROVIDERS: ADMIT Internal Medicine; ATTEND Internal Medicine
PROC: 0H97XZZ Drainage of Abdomen Skin, External Approach (ICD-10-PCS; principal; 2017-04-05)
DX: L03.311 Cellulitis of abdominal wall (principal); E11.40 Type 2 diabetes mellitus with diabetic neuropathy, unspecified; R65.10 Systemic inflammatory response syndrome (SIRS) of non-infectious origin without acute organ dysfunction; E66.01 Morbid (severe) obesity due to excess calories; Z68.43 Body mass index [BMI] 50.0-59.9, adult; L02.211 Cutaneous abscess of abdominal wall; E78.5 Hyperlipidemia, unspecified; F17.210 Nicotine dependence, cigarettes, uncomplicated; F51.04 Psychophysiologic insomnia; G47.33 Obstructive sleep apnea (adult) (pediatric); I10 Essential (primary) hypertension; J45.909 Unspecified asthma, uncomplicated; M46.90 Unspecified inflammatory spondylopathy, site unspecified; Z82.49 Family history of ischemic heart disease and other diseases of the circulatory system; Z83.3 Family history of diabetes mellitus; Z84.1 Family history of disorders of kidney and ureter; Z90.710 Acquired absence of both cervix and uterus; R40.2412 Glasgow coma scale score 13-15, at arrival to emergency department

== ENCOUNTER 2017-04-08 18:26 | Inpatient (IN) | payer OTHER, MEDICAID ==
[2017-04-08] MEDS: Insulin Reg-LOW-Coverage SC SCH (21:45)
[2017-04-09 04:11] VITALS: BMI 56.1
[2017-04-09] MEDS: Ceftaroline 600 MG in Sodium Chloride 0.9% 100 ML IVPB SCH ×2 (05:35→17:41)
[2017-04-09] MEDS: Insulin Reg-LOW-Coverage SC SCH ×4 (06:41→22:31)
[2017-04-09 06:45] LABS: BASO # 0.03 K/mm3 (0.0-2.0); BASO % 0.3 % (0.0-3.0); EOS # 0.2 (0.0-0.7); GRAN # 5.62 (1.4-6.5); GRAN % 59.6 % (50.0-68.0); HEMATOCRIT 35.4 % (36.0-48.0); LYMPH # 2.9 (1.2-3.4); LYMPH % 31.2 % (22.0-35.0); MEAN CELL VOLUME 90.1 fl (80.0-105.0); MEAN CORPUSCULAR HEMOGLOBIN 28.2 pg (25.0-35.0); MEAN CORPUSCULAR HGB CONC 31.4 g/dl (31.0-37.0); MEAN PLATELET VOLUME 9.9 fl (7.0-11.0); MONO # 0.7 (0.1-0.6); MONO % 6.9 % (1.0-6.0); RED CELL DISTRIBUTION WIDTH 13.8 % (11.5-14.5); WHITE BLOOD COUNT 9.4 10^3/ul (4.5-11.0)
[2017-04-09 06:58] LABS: BLOOD UREA NITROGEN 13 mg/dL (7-21); CALCIUM 8.9 mg/dL (8.4-10.5); CARBON DIOXIDE 29 mmol/L (21-33); CHLORIDE 105 mmol/L (98-107); GFR AFRICAN-AMERICAN > 60; GLUCOSE,RANDOM 107 mg/dL (70-110); POTASSIUM 4.2 mmol/L (3.6-5.0); SODIUM 141 mmol/L (132-148)
[2017-04-09] MEDS ORDERED: HYDROmorphone 1 mg/ml ISec IVP STA (11:02)
--- NOTE | 2017-04-09 23:46 | CP.PCM.CON ---
History of Present Illness - History of Present Illness History of Present Illness: Infectious Disease Consultation/Follow Up: April 09, 2017 51 yo female who is morbidly obese presenting for 2 day history of induration of the left suprapubic abdomen. There had been drainage that the patient has been changing about every hour. Patient denies fever or chills. I last saw the patient 5 years ago. The patient follows with Dr. Durbin for her PMD. The patient taking Metformin for DM treatment. CT scan did not show abscess or inflammatory process. Surgery has evaluated the patient. Cultures negative to date. Remains on IV antibiotics. Patient with one ascess site I&D in ER. On antibiotics. No further intervention by surgery. PMHx: DM, HTN, HLD, morbid obsity, lower extremity edema, neuropathy, asthma, KERRIE, anxiety, depression PSHx: Partial hysterectomy and right ankle surgery. Allergies: Question of Vancomycin allergy versus red man syndrome. Social Hx: Social EtOH 1/3 ppd tobacco use No illicit drug use. Active Medications Acetaminophen (Tylenol 325mg Tab) 650 mg PO Q4H PRN; Protocol PRN Reason: Pain, moderate (4-7) Gabapentin (Neurontin) 300 mg PO HS PHILIPPE PRN Reason: Protocol Last Admin: 04/09/17 21:04 Dose: 300 mg Ibuprofen (Motrin Tab) 400 mg PO Q6H PRN; Protocol PRN Reason: Pain, moderate (4-7) Last Admin: 04/09/17 21:04 Dose: 400 mg Insulin Human Regular (Humulin R Low) 0 units SC ACHS PHILIPPE PRN Reason: Protocol Last Admin: 04/09/17 22:31 Dose: Not Given Losartan Potassium (Cozaar) 100 mg PO DAILY PHILIPPE PRN Reason: Protocol Last Admin: 04/09/17 10:54 Dose: 100 mg Sodium Chloride ([place] Nasal [place]) 0 ml NS Q6H PRN; Protocol PRN Reason: Nasal congestion Zolpidem Tartrate (Ambien) 5 mg PO HS PRN; Protocol PRN Reason: Insomnia Last Admin: 04/09/17 21:04 Dose: 5 mg Family Hx: none given ROS: No fevers, chills, nausea, vomiting, diarrhea, headaches, dizziness, chest pain , melena, hematuria, hematemesis, hematochezia. Positive abdominal pain, depression, anxiety. Past Patient History - Infectious Disease Hx of Infectious Diseases: None - Past Social History Smoking Status: Current Some Days Smoker - CARDIAC Hx Hypertension: Yes - PULMONARY Hx Asthma: Yes Hx Sleep Apnea: Yes - NEUROLOGICAL Other/Comment: neuropathy - ENDOCRINE/METABOLIC Hx Diabetes Mellitus Type 2: Yes - MUSCULOSKELETAL/RHEUMATOLOGICAL Hx Arthritis: Yes - GASTROINTESTINAL Hx Gastrointestinal Disorders: No - GENITOURINARY/GYNECOLOGICAL Hx Genitourinary Disorders: No Hx Reproductive Disorders: Yes (hemorrhaging fibroid uterus) - PSYCHIATRIC Hx Anxiety: Yes Hx Depression: Yes - SURGICAL HISTORY Hx Hysterectomy: Yes (partial) Hx Orthopedic Surgery: Yes (Right ankle surgery) Meds Allergies/Adverse Reactions: Allergies Allergy/AdvReac Type Severity Reaction Status Date / Time vancomycin Allergy RASH Verified 04/06/17 02:24 - Medications Medications: Current Medications Acetaminophen (Tylenol 325mg Tab) 650 mg PO Q4H PRN; Protocol PRN Reason: Pain, moderate (4-7) Gabapentin (Neurontin) 300 mg PO HS PHILIPPE PRN Reason: Protocol Last Admin: 04/09/17 21:04 Dose: 300 mg Ibuprofen (Motrin Tab) 400 mg PO Q6H PRN; Protocol PRN Reason: Pain, moderate (4-7) Last Admin: 04/09/17 21:04 Dose: 400 mg Insulin Human Regular (Humulin R Low) 0 units SC ACHS PHILIPPE PRN Reason: Protocol Last Admin: 04/09/17 22:31 Dose: Not Given Losartan Potassium (Cozaar) 100 mg PO DAILY PHILIPPE PRN Reason: Protocol Last Admin: 04/09/17 10:54 Dose: 100 mg Sodium Chloride ([place] Nasal [place]) 0 ml NS Q6H PRN; Protocol PRN Reason: Nasal congestion Zolpidem Tartrate (Ambien) 5 mg PO HS PRN; Protocol PRN Reason: Insomnia Last Admin: 04/09/17 21:04 Dose: 5 mg Physical Exam - Constitutional Appears: Non-toxic, No Acute Distress, Chronically Ill - Head Exam Head Exam: ATRAUMATIC, NORMOCEPHALIC - Eye Exam Eye Exam: EOMI, PERRL Pupil Exam: NORMAL ACCOMODATION, PERRL - ENT Exam ENT Exam: Mucous Membranes Moist, Normal External Ear Exam, TM's Normal Bilaterally - Neck Exam Neck exam: Positive for: Full Rom, Normal Inspection - Respiratory Exam Respiratory Exam: Clear to Auscultation Bilateral, NORMAL BREATHING PATTERN. absent: Rales, Rhonchi, Wheezes - Cardiovascular Exam Cardiovascular Exam: REGULAR RHYTHM, RRR, +S1, +S2 - GI/Abdominal Exam GI & Abdominal Exam: Normal Bowel Sounds, Soft, Tenderness. absent: Distended Additional comments: s/p I&D in ER to left suprapubic abdomen. - Extremities Exam Extremities exam: Positive for: full ROM, normal inspection - Neurological Exam Neurological exam: Alert, CN II-XII Intact, Oriented x3 - Psychiatric Exam Psychiatric exam: Normal Affect, Normal Mood - Skin Skin Exam: Intact, Normal Color Results - Vital Signs Recent Vital Signs: Last Vital Signs Temp 98.6 F 04/09/17 16:00 Pulse 64 04/09/17 16:00 Resp 18 04/09/17 16:00 BP 121/71 04/09/17 16:00 Pulse Ox 98 04/09/17 16:00 - Labs Result Diagrams: 04/09/17 06:20 04/09/17 06:20 Labs: Laboratory Results - last 24 hr 04/09/17 04/09/17 04/09/17 06:20 06:20 11:06 WBC 9.4 RBC 3.93 Hgb 11.1 L Hct 35.4 L MCV 90.1 MCH 28.2 MCHC 31.4 RDW 13.8 Plt Count 337 MPV 9.9 Gran % 59.6 Lymph % (Auto) 31.2 [place] % (Auto) 6.9 H Eos % (Auto) 2.0 Baso % (Auto) 0.3 Gran # 5.62 Lymph # 2.9 [place] # 0.7 H Eos # 0.2 Baso # 0.03 Sodium 141 Potassium 4.2 Chloride 105 Carbon Dioxide 29 Anion Gap 11 BUN 13 Creatinine 0.9 Est GFR ( Amer) > 60 Est GFR (Non-Af Amer) > 60 POC Glucose (mg/dL) 94 Random Glucose 107 Calcium 8.9 04/09/17 04/09/17 16:38 21:56 WBC RBC Hgb Hct MCV MCH MCHC RDW Plt Count MPV Gran % Lymph % (Auto) [place] % (Auto) Eos % (Auto) Baso % (Auto) Gran # Lymph # [place] # Eos # Baso # Sodium Potassium Chloride Carbon Dioxide Anion Gap BUN Creatinine Est GFR ( Amer) Est GFR (Non-Af Amer) POC Glucose (mg/dL) 102 130 H Random Glucose Calcium Assessment & Plan - Assessment and Plan (Free Text) Assessment: 51 yo female with left suprapubic abscess requiring I&D. Patient developed redness of skin and itchiness when given Vancomycin. Unclear if this was an allergic reaction versus Red-Man syndrome associated with rapid infusion of Vancomycin IV. Rash is not present as time of my exam. Patient did not have an allergy to Vancomycin when I last saw the patient 5 yeas ago. We will start Teflaro for now and monitor. Surgery evaluation done. CT scan of the area done and did not show visible abscess. The patient does states chills and subjective fevers. Supportive care. Thank you for allowing me to participate in the care of the patient, we will follow with you.
[2017-04-10] MEDS: Ceftaroline 600 MG in Sodium Chloride 0.9% 100 ML IVPB SCH ×2 (05:28→18:53)
[2017-04-10] MEDS: Insulin Reg-LOW-Coverage SC SCH ×4 (06:53→22:29)
--- NOTE | 2017-04-10 08:07 | PN ---
DATE: 04/09/2017 Of note, this 51-year-old female now with anemia had additional lab testing which showed iron level 57, TIBC 278, percent saturation 20, ferritin level 164. B12 level 269 and folic acid 10.2. These findings are consistent with anemia of chronic disease. Kenna Palafox MD
--- NOTE | 2017-04-10 08:07 | PN ---
DATE: 04/09/2017 SUBJECTIVE: This 51-year-old female was examined at her bedside in the presence of her nurse, Cheryl Mendoza, registered nurse and wound care nurse, [place]. The patient remains hospitalized with abdominal wall cellulitis and is being followed by consultants, Dr. Mikey Wagner from Infectious Disease as well as Dr. Nikolay Anand from Surgery. The patient is being prescribed IV Teflaro 600 mg IV q. 12 h. and is receiving warm soaks to her abdominal wall q. 1 hour. The patient denies any fever or chills and states that both the pain and erythema on the abdominal wall cellulitis are improving daily. It should be noted that the patient did have a CT of her abdominal and pelvic area and it showed no evidence of cellulitic tissue invasion or abscess. PHYSICAL EXAMINATION: VITAL SIGNS: Temperature of 97.9, respirations 20, pulse 65 and blood pressure 104/62 with a pulse ox of 98% room air. HEENT: Head: Normocephalic, atraumatic. Eyes: No icterus. Ears: Clear. Throat: Noninjected. NECK: Supple. HEART: Regular S1, S2. LUNGS: Clear. ABDOMEN: Obese, nontender. No palpable organomegaly. No rebound, no guarding. No tenderness. Her abdominal wall does have areas of erythema under the skin folds and there are 2 areas that are draining serosanguineous fluid. VASCULAR: Legs warm to touch. PSYCHOLOGIC: Alert and oriented x3. NEUROLOGIC: Grossly intact. LABORATORY DATA: White count 9400, hemoglobin 11.1, hematocrit 35.4, platelets 337,000. Sodium 141, K 4.2, chloride 105, bicarb 29, BUN 13, creatinine 0.9, random blood sugar is 94. It should be noted that the patient states she has had a colonoscopy and endoscopy by Dr. Coko at [facility] within the past year that failed to show any significant pathology for any cancer. She states upper endoscopy showed gastritis and hiatal hernia and her lower colonoscopy showed internal hemorrhoids and no polyps or masses. IMPRESSION: A 51-year-old female morbidly obese with abdominal wall cellulitis improving daily on antibiotics under the direction of Dr. Mikey Wagner and also being followed by Dr. Nikolay Anand from Surgery for local furuncle wound care, also without comorbidities of chronic insomnia, anxiety, neurosis, chronic hypertension, diabetes mellitus, degenerative arthritis and peripheral neuropathy. PLAN: At present is to continue physical and occupational therapy for reconditioning, gait training and nursing staff has been instructed to apply warm compresses to abdominal wall, cellulitic areas q. 1 hour and the patient was instructed as well. She continues on a heart-healthy diabetic diet. She is receiving Teflaro 600 mg IV q. 12 h., Neurontin 300 mg p.o. bedtime, regular low-dose insulin protocol before meals and bedtime, Cozaar 100 mg p.o. daily and Ambien 5 mg p.o. at bedtime p.r.n. insomnia. The patient will be followed by Surgery, Infectious Disease on a daily basis and ultimate plan will be for discharge to home when medically stable. Greater than 35 minutes was spent in the care management, discussion and review of orders and treatment for this patient today with herself, nursing and co-consultants. All questions were answered. Kenna Palafox MD MTDDa
--- NOTE | 2017-04-10 12:53 | CP.PCM.PN ---
Subjective - Date & Time of Evaluation Date of Evaluation: 04/10/17 Time of Evaluation: 08:15 - Subjective Subjective: COG-PGY1 SURGERY PROGRESS NOTE Patient seen and evaluated at bedside. No acute events reported overnight. Patient continues to have discomfort associated with supra pubic abscess. Has been placing warm compress regularly. Patient denies chest pain, shortness of breath, abdominal pain, nausea, vomiting, fever, chills. Objective - Vital Signs/Intake and Output Vital Signs (last 24 hours): Temp Pulse Resp BP Pulse Ox 98.6 F 64 18 121/71 98 04/09/17 16:00 04/09/17 16:00 04/09/17 16:00 04/09/17 16:00 04/09/17 16:00 Intake and Output: 04/10/17 04/10/17 06:59 18:59 Intake Total 280 Balance 280 - Medications Medications: Current Medications Gabapentin (Neurontin) 300 mg PO HS PHILIPPE PRN Reason: Protocol Last Admin: 04/09/17 21:04 Dose: 300 mg Ceftaroline Fosamil 600 mg/ (Sodium Chloride) 100 mls @ 100 mls/hr IVPB Q12H PHILIPPE PRN Reason: Protocol Last Admin: 04/10/17 05:28 Dose: 100 mls/hr Ibuprofen (Motrin Tab) 400 mg PO Q6H PRN; Protocol PRN Reason: Pain, moderate (4-7) Last Admin: 04/09/17 21:04 Dose: 400 mg Insulin Human Regular (Humulin R Low) 0 units SC ACHS PHILIPPE PRN Reason: Protocol Last Admin: 04/10/17 12:18 Dose: Not Given Losartan Potassium (Cozaar) 100 mg PO DAILY PHILIPPE PRN Reason: Protocol Last Admin: 04/10/17 11:02 Dose: 100 mg Sodium Chloride ([place] Nasal [place]) 0 ml NS Q6H PRN; Protocol PRN Reason: Nasal congestion Zolpidem Tartrate (Ambien) 5 mg PO HS PRN; Protocol PRN Reason: Insomnia Last Admin: 04/09/17 21:04 Dose: 5 mg - Labs Labs: 04/09/17 06:20 04/09/17 06:20 - Constitutional Appears: No Acute Distress - Head Exam Head Exam: ATRAUMATIC, NORMAL INSPECTION, NORMOCEPHALIC - Eye Exam Eye Exam: EOMI, PERRL - ENT Exam ENT Exam: Mucous Membranes Moist - Respiratory Exam Respiratory Exam: Clear to Ausculation Bilateral, NORMAL BREATHING PATTERN. absent: Rhonchi, Wheezes - Cardiovascular Exam Cardiovascular Exam: REGULAR RHYTHM, +S1, +S2 - GI/Abdominal Exam GI & Abdominal Exam: Soft, Normal Bowel Sounds. absent: Guarding Additional comments: suprapubic abscesses present medial to lateral, medial abscess with dressing c/d /i, tender to palpation, no erythema, - Back Exam Back Exam: NORMAL INSPECTION. absent: CVA tenderness (L), CVA tenderness (R) - Neurological Exam Neurological Exam: Alert, Awake, Normal Gait, Oriented x3 - Psychiatric Exam Psychiatric exam: Normal Affect, Normal Mood - Skin Skin Exam: Dry, Intact, Normal Color, Warm Assessment and Plan - Assessment and Plan (Free Text) Assessment: 51F w/ left side superficial infra-pannus abscess actively draining Plan: - warm compress - bedside I&D today - needle aspiration for abscess forming cephalad to original abscess - c/w abx - medical management per primary team - further recs per Dr. Anand surgical attending Procedure - Incision and Drainage Patient positioned appropriately, 15cc lidocaine without epinephrine was used as a local anesthetic. #11 blade scalpal used for single incision on lateral suprapubic abscess and medial suprapubic abscess. Additional local anesthetic injected into surrounding viable tissue prior to blunt dissection of loculated adhesions. Copius drainage of pus (culture obtainedx2). Wound packed with iodoform gauze. Procedure tolerated without complications. Wound dressed with sterile 4x4 guaze and paper tape.
[2017-04-10] MEDS ORDERED: HYDROmorphone 1 mg/ml ISec IVP STA (14:17)
--- NOTE | 2017-04-10 16:50 | CP.PCM.PN ---
Subjective - Date & Time of Evaluation Date of Evaluation: 04/10/17 Time of Evaluation: 15:45 - Subjective Subjective: Infectious Disease Consultation/Follow Up: April 10, 2017 51 yo female who is morbidly obese presenting for 2 day history of induration of the left suprapubic abdomen. There had been drainage that the patient has been changing about every hour. Patient denies fever or chills. I last saw the patient 5 years ago. The patient follows with Dr. Durbin for her PMD. The patient taking Metformin for DM treatment. CT scan did not show abscess or inflammatory process. Surgery has evaluated the patient. Cultures negative to date. Remains on IV antibiotics. Patient with one abscess site I&D in ER. On antibiotics. No further intervention by surgery. Remains on Teflaro for antibiotic use. Objective - Vital Signs/Intake and Output Vital Signs (last 24 hours): Temp Pulse Resp BP Pulse Ox 98.6 F 64 18 121/71 98 04/09/17 16:00 04/09/17 16:00 04/09/17 16:00 04/09/17 16:00 04/09/17 16:00 Intake and Output: 04/10/17 04/10/17 06:59 18:59 Intake Total 280 Balance 280 - Medications Medications: Current Medications Gabapentin (Neurontin) 300 mg PO HS PHILIPPE PRN Reason: Protocol Last Admin: 04/09/17 21:04 Dose: 300 mg Ceftaroline Fosamil 600 mg/ (Sodium Chloride) 100 mls @ 100 mls/hr IVPB Q12H PHILIPPE PRN Reason: Protocol Last Admin: 04/10/17 05:28 Dose: 100 mls/hr Ibuprofen (Motrin Tab) 400 mg PO Q6H PRN; Protocol PRN Reason: Pain, moderate (4-7) Last Admin: 04/09/17 21:04 Dose: 400 mg Insulin Human Regular (Humulin R Low) 0 units SC ACHS PHILIPPE PRN Reason: Protocol Last Admin: 04/10/17 12:18 Dose: Not Given Losartan Potassium (Cozaar) 100 mg PO DAILY PHILIPPE PRN Reason: Protocol Last Admin: 04/10/17 11:02 Dose: 100 mg Sodium Chloride ([place] Nasal [place]) 0 ml NS Q6H PRN; Protocol PRN Reason: Nasal congestion Zolpidem Tartrate (Ambien) 5 mg PO HS PRN; Protocol PRN Reason: Insomnia Last Admin: 04/09/17 21:04 Dose: 5 mg - Labs Labs: 04/09/17 06:20 04/09/17 06:20 - Constitutional Appears: Non-toxic, No Acute Distress, Chronically Ill - Head Exam Head Exam: ATRAUMATIC, NORMOCEPHALIC - Eye Exam Eye Exam: EOMI, PERRL Pupil Exam: NORMAL ACCOMODATION, PERRL - ENT Exam ENT Exam: Mucous Membranes Moist, Normal External Ear Exam, TM's Normal Bilaterally - Neck Exam Neck Exam: Full ROM, Normal Inspection - Respiratory Exam Respiratory Exam: Clear to Ausculation Bilateral, NORMAL BREATHING PATTERN. absent: Rales, Rhonchi, Wheezes - Cardiovascular Exam Cardiovascular Exam: REGULAR RHYTHM, RRR, +S1, +S2 - GI/Abdominal Exam GI & Abdominal Exam: Soft, Normal Bowel Sounds. absent: Distended, Tenderness Additional comments: s/p I&D in ER to left suprapubic abdomen. Packed. Large pannus. - Extremities Exam Extremities Exam: Full ROM, Normal Inspection - Neurological Exam Neurological Exam: Alert, Awake, CN II-XII Intact, Oriented x3 - Psychiatric Exam Psychiatric exam: Normal Affect, Normal Mood - Skin Skin Exam: Intact, Normal Color Assessment and Plan - Assessment and Plan (Free Text) Assessment: 51 yo female with left suprapubic abscess requiring I&D. Patient developed redness of skin and itchiness when given Vancomycin. Unclear if this was an allergic reaction versus Red-Man syndrome associated with rapid infusion of Vancomycin IV. Rash is not present as time of my exam. Patient did not have an allergy to Vancomycin when I last saw the patient 5 yeas ago. We will continue with Evan for now and monitor. Surgery evaluation done. CT scan of the area done and did not show visible abscess. The patient does states chills and subjective fevers on admission. She makes vague complaints when asked about symptoms now. Difficult to assess level of improvement due to large pannus. Supportive care. Thank you for allowing me to participate in the care of the patient, we will follow with you.
[2017-04-11] MEDS: Ceftaroline 600 MG in Sodium Chloride 0.9% 100 ML IVPB SCH ×2 (05:11→17:59)
[2017-04-11] MEDS: Insulin Reg-LOW-Coverage SC SCH ×4 (07:04→22:10)
--- NOTE | 2017-04-11 08:15 | PN ---
DATE: 04/10/2017 SUBJECTIVE: This 51-year-old female who was examined at the bedside. Her case was reviewed in detail with herself, nursing, and physical therapy. She remains out of bed to chair. She is applying warm soaks to her abdominal wall wound cellulitis and is draining a serosanguineous fluid and she is feeling remarkably better. She is being followed by Surgery who is considering aspiration of one of her abdominal wound sites. OBJECTIVE: VITAL SIGNS: Temperature is 98.6, respirations 18, pulse 64, and blood pressure 121/71 with a pulse ox of 98% on room air. HEENT: Head; normocephalic and atraumatic. Eyes; no icterus. Ears; clear. Throat; noninjected. NECK: Supple. HEART: Regular S1 and S2. LUNGS: Clear. ABDOMEN: Obese and nontender with improving cellulitis of the abdominal wall. EXTREMITIES: No edema. SKIN: Without rash. NEUROLOGIC: Unchanged. PSYCHOLOGIC: Alert and oriented x3. VASCULAR: Legs warm to touch. LABORATORY DATA: White count 9400, hemoglobin 11.1, hematocrit 35.4, Sodium 141, K 4.2, chloride 105, bicarb 29, BUN 13, creatinine 0.9, and random blood sugar 94. IMPRESSION: This is a 51-year-old female with morbid obesity admitted with abdominal wall cellulitis with comorbidities of chronic insomnia, anxiety, hypertension, diabetes mellitus, degenerative arthritis, and peripheral neuropathy. PLAN: Continue heart-healthy diabetic diet. She continues on Cozaar 100 mg p.o. daily, insulin coverage a.c. meals and at bedtime, Neurontin 300 mg p.o. at bedtime, and Teflaro 600 mg IV q.[address] Mikey Wagner from Infectious Disease. Physical and occupational therapy are being done daily, she is receiving warm soaks to her abdominal wall cellulitis q.1 hour and is being followed by Surgery who outlined further intervention with the patient as needed. Greater than 35 minutes was spent in the care, review of orders, management with the patient, nursing, social service, case management, Surgery, and Infectious Disease. All questions were answered. Kenna Palafox MD MTDDa
--- NOTE | 2017-04-11 11:32 | CP.PCM.PN ---
Subjective - Date & Time of Evaluation Date of Evaluation: 04/11/17 Time of Evaluation: 07:50 - Subjective Subjective: COG-PGY1 GENERAL SURGERY PROGRESS NOTE Patient seen and evaluated at bedside. Dressing changed and packing removed. Patient is s/p I and D yesterday. Patient continues to report pain associated with suprapubic abscess sites. Patient denies chest pain, shortness of breath, abdominal pain, nausea, vomiting, fever, chills. Objective - Vital Signs/Intake and Output Vital Signs (last 24 hours): Temp Pulse Resp BP Pulse Ox 98.3 F 58 L 18 128/88 96 04/11/17 11:25 04/11/17 11:25 04/11/17 11:25 04/11/17 11:25 04/11/17 11:25 - Medications Medications: Current Medications Gabapentin (Neurontin) 300 mg PO HS PHILIPPE PRN Reason: Protocol Last Admin: 04/10/17 22:29 Dose: 300 mg Ceftaroline Fosamil 600 mg/ (Sodium Chloride) 100 mls @ 100 mls/hr IVPB Q12H PHILIPPE PRN Reason: Protocol Last Admin: 04/11/17 05:11 Dose: 100 mls/hr Ibuprofen (Motrin Tab) 400 mg PO Q6H PRN; Protocol PRN Reason: Pain, moderate (4-7) Last Admin: 04/11/17 05:14 Dose: 400 mg Insulin Human Regular (Humulin R Low) 0 units SC ACHS PHILIPPE PRN Reason: Protocol Last Admin: 04/11/17 07:04 Dose: Not Given Losartan Potassium (Cozaar) 100 mg PO DAILY PIHLIPPE PRN Reason: Protocol Last Admin: 04/11/17 10:10 Dose: 100 mg Sodium Chloride ([place] Nasal [place]) 0 ml NS Q6H PRN; Protocol PRN Reason: Nasal congestion Zolpidem Tartrate (Ambien) 5 mg PO HS PRN; Protocol PRN Reason: Insomnia Last Admin: 04/10/17 22:31 Dose: 5 mg - Labs Labs: 04/09/17 06:20 04/09/17 06:20 - Constitutional Appears: No Acute Distress - Head Exam Head Exam: ATRAUMATIC, NORMAL INSPECTION, NORMOCEPHALIC - Eye Exam Eye Exam: EOMI, PERRL - ENT Exam ENT Exam: Mucous Membranes Moist - Respiratory Exam Respiratory Exam: Clear to Ausculation Bilateral, NORMAL BREATHING PATTERN. absent: Rhonchi, Wheezes - Cardiovascular Exam Cardiovascular Exam: REGULAR RHYTHM, +S1, +S2 - GI/Abdominal Exam GI & Abdominal Exam: Soft, Tenderness (suprapubic tenderness associated with abscessx2), Normal Bowel Sounds - Extremities Exam Extremities Exam: absent: Calf Tenderness, Pedal Edema - Back Exam Back Exam: NORMAL INSPECTION. absent: CVA tenderness (L), CVA tenderness (R) - Neurological Exam Neurological Exam: Alert, Awake, Oriented x3 - Psychiatric Exam Psychiatric exam: Normal Affect, Normal Mood - Skin Skin Exam: Dry, Intact. absent: Diaphoretic, Erythema, Rash Additional comments: suprapubic abscess medial: dressing changed, repacked, showing serosanguinous fluid with minimal pus, new dressing c/d/i suprapubic abscess left side, lateral: dressing changed, repacked, minimal collection of serosanguinous fluid on bandage, new dressing c/d/i Assessment and Plan - Assessment and Plan (Free Text) Plan: - bedside I&D yesteday - dressing changed, repacked with iodoform packing strip, minimal drainage - c/w abx - change dressing tomorrow with potential for sign off - medical management per primary team - further recs per Dr. Anand surgical attending Aurea Biggs PGY1
--- NOTE | 2017-04-11 18:46 | CP.PCM.PN ---
Subjective - Date & Time of Evaluation Date of Evaluation: 04/11/17 Time of Evaluation: 18:00 - Subjective Subjective: Infectious Disease Follow Up: April 11, 2017 51 yo female who is morbidly obese presenting for 2 day history of induration of the left suprapubic abdomen. There had been drainage that the patient has been changing about every hour. Patient denies fever or chills. I last saw the patient 5 years ago. The patient follows with Dr. Durbin for her PMD. The patient taking Metformin for DM treatment. CT scan did not show abscess or inflammatory process. Surgery has evaluated the patient. Cultures negative to date. Remains on IV antibiotics. Patient with one abscess site I&D in ER. On antibiotics. No further intervention by surgery. Remains on Teflaro for antibiotic use. Surgery performed another I&D on the abdominal site yesterday. Patient complains of vague abdominal pains. Objective - Vital Signs/Intake and Output Vital Signs (last 24 hours): Temp Pulse Resp BP Pulse Ox 98.1 F 59 L 16 105/58 L 96 04/11/17 18:08 04/11/17 18:08 04/11/17 18:08 04/11/17 18:08 04/11/17 18:08 - Medications Medications: Current Medications Gabapentin (Neurontin) 300 mg PO HS PHILIPPE PRN Reason: Protocol Last Admin: 04/10/17 22:29 Dose: 300 mg Ceftaroline Fosamil 600 mg/ (Sodium Chloride) 100 mls @ 100 mls/hr IVPB Q12H PHILIPPE PRN Reason: Protocol Last Admin: 04/11/17 17:59 Dose: 100 mls/hr Ibuprofen (Motrin Tab) 400 mg PO Q6H PRN; Protocol PRN Reason: Pain, moderate (4-7) Last Admin: 04/11/17 05:14 Dose: 400 mg Insulin Human Regular (Humulin R Low) 0 units SC ACHS PHILIPPE PRN Reason: Protocol Last Admin: 04/11/17 17:58 Dose: Not Given Losartan Potassium (Cozaar) 100 mg PO DAILY PHILIPPE PRN Reason: Protocol Last Admin: 04/11/17 10:10 Dose: 100 mg Sodium Chloride ([place] Nasal [place]) 0 ml NS Q6H PRN; Protocol PRN Reason: Nasal congestion Zolpidem Tartrate (Ambien) 5 mg PO HS PRN; Protocol PRN Reason: Insomnia Last Admin: 04/10/17 22:31 Dose: 5 mg - Labs Labs: 04/09/17 06:20 04/09/17 06:20 - Constitutional Appears: Non-toxic, No Acute Distress, Chronically Ill - Head Exam Head Exam: ATRAUMATIC, NORMOCEPHALIC - Eye Exam Eye Exam: EOMI, PERRL Pupil Exam: NORMAL ACCOMODATION, PERRL - ENT Exam ENT Exam: Mucous Membranes Moist, Normal External Ear Exam, TM's Normal Bilaterally - Neck Exam Neck Exam: Full ROM, Normal Inspection - Respiratory Exam Respiratory Exam: Clear to Ausculation Bilateral, NORMAL BREATHING PATTERN. absent: Rales, Rhonchi, Wheezes - Cardiovascular Exam Cardiovascular Exam: REGULAR RHYTHM, RRR, +S1, +S2 - GI/Abdominal Exam GI & Abdominal Exam: Soft, Normal Bowel Sounds. absent: Distended, Tenderness - Extremities Exam Extremities Exam: Full ROM, Normal Inspection - Neurological Exam Neurological Exam: Alert, Awake, CN II-XII Intact, Oriented x3 - Psychiatric Exam Psychiatric exam: Normal Affect, Normal Mood - Skin Skin Exam: Intact, Normal Color Assessment and Plan - Assessment and Plan (Free Text) Assessment: 51 yo female with left suprapubic abscess requiring I&D. Patient developed redness of skin and itchiness when given Vancomycin. Unclear if this was an allergic reaction versus Red-Man syndrome associated with rapid infusion of Vancomycin IV. Rash is not present as time of my exam. Patient did not have an allergy to Vancomycin when I last saw the patient 5 yeas ago. We will continue with Teflaro for now and monitor. Surgery evaluation done. CT scan of the area done and did not show visible abscess. The patient does states chills and subjective fevers on admission. She makes vague complaints when asked about symptoms now. Difficult to assess level of improvement due to large pannus. Surgery I&D another potential abscess on the abdomen/pannus yesterday. Supportive care. Thank you for allowing me to participate in the care of the patient, we will follow with you.
[2017-04-12] MEDS: Ceftaroline 600 MG in Sodium Chloride 0.9% 100 ML IVPB SCH ×2 (05:05→18:12)
[2017-04-12] MEDS: Insulin Reg-LOW-Coverage SC SCH ×4 (07:52→21:47)
--- NOTE | 2017-04-12 08:36 | PN ---
DATE: 04/11/2017 SUBJECTIVE: This 51-year-old female was examined at the bedside and the case was reviewed in detail with her nurse. The patient is status post incision and drainage by Surgery and now has packing in 2 abdominal wounds that are still draining serosanguineous fluid on her packing, and the patient is receiving parenteral antibiotics including IV Teflaro 600 mg IV q. 12 h. under the direction of Dr. Mikey Wagner. PHYSICAL EXAMINATION: VITAL SIGNS: Temperature 98.3, respirations 18, pulse 58, blood pressure 128/88. Pulse ox 96% room air. HEAD: Normocephalic, atraumatic. EYES: No icterus. EARS: Clear. THROAT: Noninjected. NECK: Supple. HEART: Regular S1, S2. LUNGS: Clear. ABDOMEN: Obese. EXTREMITIES: No edema. SKIN: Improving abdominal wall cellulitis. No ulcerations. VASCULAR: Legs warm to touch. PSYCHOLOGIC: Alert and oriented x3. NEUROLOGIC: Intact. LABORATORY DATA: White count 9400, hemoglobin 11.1, hematocrit 35.4, platelets 337,000, random blood sugar 108. Sodium 141, K 4.2, chloride 105, bicarb 29, BUN 13, creatinine 0.9, calcium 8.9. IMPRESSION: Morbidly obese 51-year-old diabetic with abdominal wall cellulitis, status post incision and drainage of 2 abscessed abdominal wall areas, also with comorbidities of chronic hypertension, diabetes mellitus, insomnia, degenerative arthritis, spinal arthritis and anemia of chronic illness. PLAN: At present is to continue heart-healthy diabetic diet. She continues on parenteral Teflaro 600 mg IV q. 12 h., Neurontin 300 mg p.o. at bedtime, regular low-dose insulin protocol before meals and at bedtime, Cozaar 100 mg p.o. daily and Ambien 5 mg p.o. at bedtime p.r.n. insomnia. She is ordered to have physical and occupational therapy. I will ask nursing to contact Surgery regarding wound care instructions if the patient is to be trained on packing or have this done by visiting nurse upon discharge. It should be noted that repeat wound cultures are pending and the patient will continue on parenteral antibiotics as outlined. All of the above was explained in detail to the patient and nursing. Greater than 35 minutes was spent in the care management, discussion of this patient today. A call has placed to Dr. Nikolay Anand from Surgery to further clarify surgical instructions and followup. Kenna Palafox MD [facility]
--- NOTE | 2017-04-12 08:49 | CP.PCM.PCO ---
Physician Communication Note - Physician Communication Note Physician Communication Note: Packing removed. can shower & keep area clean. no further sgx
--- NOTE | 2017-04-12 14:15 | PN ---
DATE: 04/12/2017 SUBJECTIVE: This 51-year-old female was examined at the bedside. Her case was reviewed in detail with herself, her nurse, Radha Garcia, registered nurse as well as Dr. Nikolay Anand from Surgery. The patient still requires parenteral antibiotics and on microbiology studies, has a wound culture that is growing methicillin-resistant Staph aureus. I will ask nursing staff to convey this finding to Dr. Mikey Wagner. The patient at present is on Teflaro. The patient has been cleared by Surgery to shower. All packing has been removed. She still has erythema and warmth on her abdominal wall, but is showing signs of clinical improvement. OBJECTIVE: VITAL SIGNS: Temperature is 97.9, respirations 20, pulse 64, blood pressure 110/71 with a pulse ox of 100% room air. HEAD: Normocephalic, atraumatic. EYES: No icterus. EARS: Clear. THROAT: Noninjected. NECK: Supple. HEART: Regular, S1, S2. LUNGS: Clear. ABDOMEN: Obese with abdominal wall cellulitis and drainage from her I and D wound sites. EXTREMITIES: No edema. SKIN: No ulcers. VASCULAR: Legs warm to touch. PSYCHOLOGICAL: Alert and oriented x3. LABORATORY DATA: White count 9400, hemoglobin 11.1, hematocrit 35.4, platelets 337,000. Electrolytes: Sodium 141, K 4.2, chloride 105, bicarb 29, BUN 13, creatinine 0.9, random blood sugar 113. IMPRESSION: A morbidly obese 51-year-old female admitted with abdominal wall cellulitis and comorbidities of insomnia, anxiety, hypertension, type 2 diabetes mellitus, degenerative arthritis, spinal arthritis, peripheral neuropathy, and anemia of chronic disease. As discussed with the patient, Dr. Nikolay Anand from Surgery; Dr. Mikey Wagner from Infectious Disease; and nurse, Radha Garcia, registered nurse; the patient will continue on heart-healthy diabetic diet. She is allowed now to shower and to continue q.1 hour warm soaks to her abdominal wound areas. She will have antibiotic protocol readjusted by Dr. Wagner as he deems appropriate. We will continue on Teflaro 600 mg IV q.12, Neurontin 300 mg p.o. at bedtime, regular low-dose insulin protocol before meals and at bedtime, Cozaar 100 mg p.o. daily, and Ambien 5 mg p.o. at bedtime p.r.n. insomnia. She continues on physical and occupational therapy. She remains on wound care isolation precautions, and greater than 35 minutes was spent in the care management, discussion, review of medication, labs, reports with the patient's consultants and nursing staff today. All questions were answered. Kenna Palafox MD MTDD
--- NOTE | 2017-04-12 22:12 | CP.PCM.PN ---
Subjective - Date & Time of Evaluation Date of Evaluation: 04/12/17 Time of Evaluation: 21:00 - Subjective Subjective: Infectious Disease Follow Up: April 12, 2017 51 yo female who is morbidly obese presenting for 2 day history of induration of the left suprapubic abdomen. There had been drainage that the patient has been changing about every hour. Patient denies fever or chills. I last saw the patient 5 years ago. The patient follows with Dr. Durbin for her PMD. The patient taking Metformin for DM treatment. CT scan did not show abscess or inflammatory process. Surgery has evaluated the patient. Cultures negative to date. Remains on IV antibiotics. Patient with one abscess site I&D in ER. On antibiotics. No further intervention by surgery. Remains on Teflaro for antibiotic use. Surgery performed another I&D on the abdominal site during the TRCU stay. Patient complains of vague abdominal pains. Packing removed today and surgery has allowed the patient to shower. Objective - Vital Signs/Intake and Output Vital Signs (last 24 hours): Temp Pulse Resp BP Pulse Ox 98.3 F 65 20 113/49 L 100 04/12/17 14:00 04/12/17 14:00 04/12/17 14:00 04/12/17 14:00 04/12/17 06:00 - Medications Medications: Current Medications Gabapentin (Neurontin) 300 mg PO HS PHILIPPE PRN Reason: Protocol Last Admin: 04/12/17 21:47 Dose: 300 mg Ceftaroline Fosamil 600 mg/ (Sodium Chloride) 100 mls @ 100 mls/hr IVPB Q12H [facility] PRN Reason: Protocol Last Admin: 04/12/17 18:12 Dose: 100 mls/hr Ibuprofen (Motrin Tab) 400 mg PO Q6H PRN; Protocol PRN Reason: Pain, moderate (4-7) Last Admin: 04/12/17 21:49 Dose: 400 mg Insulin Human Regular (Humulin R Low) 0 units SC ACHS PHILIPPE PRN Reason: Protocol Last Admin: 04/12/17 21:47 Dose: Not Given Losartan Potassium (Cozaar) 100 mg PO DAILY [facility] PRN Reason: Protocol Last Admin: 04/12/17 10:26 Dose: 100 mg Sodium Chloride ([place] Nasal [place]) 0 ml NS Q6H PRN; Protocol PRN Reason: Nasal congestion Zolpidem Tartrate (Ambien) 5 mg PO HS PRN; Protocol PRN Reason: Insomnia Last Admin: 04/11/17 22:50 Dose: 5 mg - Labs Labs: 04/09/17 06:20 04/09/17 06:20 - Constitutional Appears: Non-toxic, No Acute Distress, Chronically Ill - Head Exam Head Exam: ATRAUMATIC, NORMOCEPHALIC - Eye Exam Eye Exam: EOMI, PERRL Pupil Exam: NORMAL ACCOMODATION, PERRL - ENT Exam ENT Exam: Mucous Membranes Moist, Normal External Ear Exam, TM's Normal Bilaterally - Respiratory Exam Respiratory Exam: Clear to Ausculation Bilateral, Rales, NORMAL BREATHING PATTERN. absent: Rhonchi, Wheezes - Cardiovascular Exam Cardiovascular Exam: REGULAR RHYTHM, RRR, +S1, +S2 - GI/Abdominal Exam GI & Abdominal Exam: Soft, Normal Bowel Sounds. absent: Distended, Tenderness - Extremities Exam Extremities Exam: Full ROM, Normal Inspection - Neurological Exam Neurological Exam: Alert, Awake, CN II-XII Intact, Oriented x3 - Psychiatric Exam Psychiatric exam: Normal Affect, Normal Mood - Skin Skin Exam: Intact, Normal Color Assessment and Plan - Assessment and Plan (Free Text) Assessment: 51 yo female with left suprapubic abscess requiring I&D. Patient developed redness of skin and itchiness when given Vancomycin. Unclear if this was an allergic reaction versus Red-Man syndrome associated with rapid infusion of Vancomycin IV. Rash is not present as time of my exam. Patient did not have an allergy to Vancomycin when I last saw the patient 5 yeas ago. We will continue with Teflaro for now and monitor. Surgery evaluation done. CT scan of the area done and did not show visible abscess. The patient does states chills and subjective fevers on admission. She makes vague complaints when asked about symptoms now. Difficult to assess level of improvement due to large pannus. Surgery I&D another potential abscess on the abdomen/pannus yesterday. Supportive care. Cultures showing MRSA... Teflaro will cover treatment of MRSA. Thank you for allowing me to participate in the care of the patient, we will follow with you.
[2017-04-13] MEDS: Ceftaroline 600 MG in Sodium Chloride 0.9% 100 ML IVPB SCH ×2 (06:41→18:17)
[2017-04-13] MEDS: Insulin Reg-LOW-Coverage SC SCH ×4 (07:40→22:19)
--- NOTE | 2017-04-13 18:29 | CP.PCM.PN ---
Subjective - Date & Time of Evaluation Date of Evaluation: 04/13/17 Time of Evaluation: 16:00 - Subjective Subjective: Infectious Disease Follow Up: April 13, 2017 51 yo female who is morbidly obese presenting for 2 day history of induration of the left suprapubic abdomen. There had been drainage that the patient has been changing about every hour. Patient denies fever or chills. I last saw the patient 5 years ago. The patient follows with Dr. Durbin for her PMD. The patient taking Metformin for DM treatment. CT scan did not show abscess or inflammatory process. Surgery has evaluated the patient. Cultures negative to date. Remains on IV antibiotics. Patient with one abscess site I&D in ER. On antibiotics. No further intervention by surgery. Remains on Teflaro for antibiotic use. Surgery performed another I&D on the abdominal site during the TRCU stay. Patient complains of vague abdominal pains. Packing removed yesterday and surgery has allowed the patient to shower. MRSA from abdominal wounds/abscesses. Remains on Teflaro for treatment. Objective - Vital Signs/Intake and Output Vital Signs (last 24 hours): Temp Pulse Resp BP Pulse Ox 98.1 F 61 16 95/57 L 94 L 04/13/17 16:52 04/13/17 16:52 04/13/17 16:52 04/13/17 16:52 04/13/17 16:52 - Medications Medications: Current Medications Diphenhydramine HCl (Benadryl) 25 mg PO Q6 PRN PRN Reason: Itching / Pruritus Gabapentin (Neurontin) 600 mg PO AMHS PHILIPPE PRN Reason: Protocol Ceftaroline Fosamil 600 mg/ (Sodium Chloride) 100 mls @ 100 mls/hr IVPB Q12H [facility] PRN Reason: Protocol Last Admin: 04/13/17 06:41 Dose: 100 mls/hr Ibuprofen (Motrin Tab) 400 mg PO Q6H PRN; Protocol PRN Reason: Pain, moderate (4-7) Last Admin: 04/13/17 09:52 Dose: 400 mg Insulin Human Regular (Humulin R Low) 0 units SC ACHS PHILIPPE PRN Reason: Protocol Last Admin: 04/13/17 13:30 Dose: Not Given Losartan Potassium (Cozaar) 100 mg PO DAILY PH[facility]IPPE PRN Reason: Protocol Last Admin: 12/23/17 09:52 Dose: 100 mg Sodium Chloride ([place] Nasal [place]) 0 ml NS Q6H PRN; Protocol PRN Reason: Nasal congestion Zolpidem Tartrate (Ambien) 5 mg PO HS PRN; Protocol PRN Reason: Insomnia Last Admin: 04/11/17 22:50 Dose: 5 mg - Labs Labs: 04/09/17 06:20 04/09/17 06:20 - Constitutional Appears: Non-toxic, No Acute Distress, Chronically Ill - Head Exam Head Exam: ATRAUMATIC, NORMOCEPHALIC - Eye Exam Eye Exam: EOMI, PERRL Pupil Exam: NORMAL ACCOMODATION, PERRL - ENT Exam ENT Exam: Mucous Membranes Moist, Normal External Ear Exam, TM's Normal Bilaterally - Neck Exam Neck Exam: Full ROM, Normal Inspection - Respiratory Exam Respiratory Exam: Clear to Ausculation Bilateral, NORMAL BREATHING PATTERN. absent: Rales, Rhonchi, Wheezes - GI/Abdominal Exam GI & Abdominal Exam: Soft, Normal Bowel Sounds. absent: Tenderness Additional comments: large pannus - Extremities Exam Extremities Exam: Full ROM, Normal Inspection - Neurological Exam Neurological Exam: Alert, Awake, CN II-XII Intact, Oriented x3 - Psychiatric Exam Psychiatric exam: Normal Affect, Normal Mood - Skin Skin Exam: Intact, Normal Color Assessment and Plan - Assessment and Plan (Free Text) Assessment: 51 yo female with left suprapubic abscess requiring I&D. Patient developed redness of skin and itchiness when given Vancomycin. Unclear if this was an allergic reaction versus Red-Man syndrome associated with rapid infusion of Vancomycin IV. Rash is not present as time of my exam. Patient did not have an allergy to Vancomycin when I last saw the patient 5 yeas ago. We will continue with Teflaro for now and monitor. Surgery evaluation done. CT scan of the area done and did not show visible abscess. The patient does states chills and subjective fevers on admission. She makes vague complaints when asked about symptoms now. Difficult to assess level of improvement due to large pannus. Surgery I&D another potential abscess on the abdomen/pannus yesterday. Supportive care. Cultures showing MRSA... Teflaro will cover treatment of MRSA. On Contact isolation. Continue with Teflaro. Thank you for allowing me to participate in the care of the patient, we will follow with you.
[2017-04-14] MEDS: Ceftaroline 600 MG in Sodium Chloride 0.9% 100 ML IVPB SCH ×2 (05:55→19:08)
[2017-04-14] MEDS: Albuterol-Ipratrop 3 mg / 0.5 (3 ml) UD IH PRN ×2 (09:44→23:30)
[2017-04-14 10:39] VITALS: RESP 18
[2017-04-14] MEDS: Insulin Reg-LOW-Coverage SC SCH ×4 (11:22→23:12)
--- NOTE | 2017-04-14 15:33 | CP.PCM.PN ---
Subjective - Date & Time of Evaluation Date of Evaluation: 04/14/17 Time of Evaluation: 15:15 - Subjective Subjective: Infectious Disease Follow Up: April 14, 2017 51 yo female who is morbidly obese presenting for 2 day history of induration of the left suprapubic abdomen. There had been drainage that the patient has been changing about every hour. Patient denies fever or chills. I last saw the patient 5 years ago. The patient follows with Dr. Durbin for her PMD. The patient taking Metformin for DM treatment. CT scan did not show abscess or inflammatory process. Surgery has evaluated the patient. Cultures negative to date. Remains on IV antibiotics. Patient with one abscess site I&D in ER. On antibiotics. No further intervention by surgery. Remains on Teflaro for antibiotic use. Surgery performed another I&D on the abdominal site during the TRCU stay. Patient complains of vague abdominal pains. Packing removed yesterday and surgery has allowed the patient to shower. MRSA from abdominal wounds/abscesses. Remains on Teflaro for treatment. Objective - Vital Signs/Intake and Output Vital Signs (last 24 hours): Temp Pulse Resp BP Pulse Ox 97.8 F 61 18 136/66 96 04/14/17 10:38 04/14/17 10:38 04/14/17 10:38 04/14/17 10:38 04/14/17 10:38 - Medications Medications: Current Medications Albuterol/Ipratropium (Duoneb 3 Mg/0.5 Mg (3 Ml) Ud) 3 ml IH [id number] PRN PRN Reason: Wheezing Last Admin: 04/14/17 09:44 Dose: 3 ml Diphenhydramine HCl (Benadryl) 25 mg PO Q6 PRN PRN Reason: Itching / Pruritus Last Admin: 04/14/17 05:56 Dose: 25 mg Gabapentin (Neurontin) 600 mg PO AMHS [facility]ILIPPE PRN Reason: Protocol Last Admin: 04/14/17 11:56 Dose: 600 mg Ceftaroline Fosamil 600 mg/ (Sodium Chloride) 100 mls @ 100 mls/hr IVPB Q12H [facility] PRN Reason: Protocol Last Admin: 04/14/17 05:55 Dose: 100 mls/hr Ibuprofen (Motrin Tab) 400 mg PO Q6H PRN; Protocol PRN Reason: Pain, moderate (4-7) Last Admin: 04/14/17 11:57 Dose: 400 mg Insulin Human Regular (Humulin R Low) 0 units SC ACHS PHILIPPE PRN Reason: Protocol Last Admin: 04/14/17 11:52 Dose: Not Given Losartan Potassium (Cozaar) 100 mg PO DAILY [facility] PRN Reason: Protocol Last Admin: 04/14/17 11:55 Dose: 100 mg Sodium Chloride ([place] Nasal [place]) 0 ml NS Q6H PRN; Protocol PRN Reason: Nasal congestion Zolpidem Tartrate (Ambien) 5 mg PO HS PRN; Protocol PRN Reason: Insomnia Last Admin: 04/11/17 22:50 Dose: 5 mg - Labs Labs: 04/09/17 06:20 04/09/17 06:20 - Constitutional Appears: Non-toxic, No Acute Distress, Chronically Ill - Head Exam Head Exam: ATRAUMATIC, NORMOCEPHALIC - Eye Exam Eye Exam: EOMI, PERRL Pupil Exam: NORMAL ACCOMODATION, PERRL - ENT Exam ENT Exam: Mucous Membranes Moist, Normal External Ear Exam, TM's Normal Bilaterally - Neck Exam Neck Exam: Full ROM, Normal Inspection - Respiratory Exam Respiratory Exam: Clear to Ausculation Bilateral, NORMAL BREATHING PATTERN. absent: Rales, Rhonchi, Wheezes - Cardiovascular Exam Cardiovascular Exam: REGULAR RHYTHM, RRR, +S1, +S2 - GI/Abdominal Exam GI & Abdominal Exam: Soft, Normal Bowel Sounds. absent: Tenderness Additional comments: large pannus. healing incision sites on lower abdomen. - Extremities Exam Extremities Exam: Full ROM, Normal Inspection - Neurological Exam Neurological Exam: Alert, Awake, CN II-XII Intact, Oriented x3 - Psychiatric Exam Psychiatric exam: Normal Affect, Normal Mood - Skin Skin Exam: Intact, Normal Color Assessment and Plan - Assessment and Plan (Free Text) Assessment: 51 yo female with left suprapubic abscess requiring I&D. Patient developed redness of skin and itchiness when given Vancomycin. Unclear if this was an allergic reaction versus Red-Man syndrome associated with rapid infusion of Vancomycin IV. Rash is not present as time of my exam. Patient did not have an allergy to Vancomycin when I last saw the patient 5 yeas ago. We will continue with Teflaro for now and monitor. Surgery evaluation done. CT scan of the area done and did not show visible abscess. The patient does states chills and subjective fevers on admission. She makes vague complaints when asked about symptoms now. Difficult to assess level of improvement due to large pannus. Surgery I&D another potential abscess on the abdomen/pannus yesterday. Supportive care. Cultures showing MRSA... Teflaro will cover treatment of MRSA. On Contact isolation. Continue with Teflaro until ready for discharge. On discharge, the patient can receive oral doxycycline 100mg BID for 10 days more for treatment. Would also place mupirocin ointment to the wound sites as well twice a day. Thank you for allowing me to participate in the care of the patient, we will follow with you.
[2017-04-15] MEDS: Ceftaroline 600 MG in Sodium Chloride 0.9% 100 ML IVPB SCH (05:17)
[2017-04-15] MEDS: Insulin Reg-LOW-Coverage SC SCH (06:45)
[2017-04-15 07:10] VITALS: O2SAT 98
[2017-04-15] MEDS: Albuterol-Ipratrop 3 mg / 0.5 (3 ml) UD IH PRN ×2 (07:42→11:02)
[2017-04-15 11:44] VITALS: BP 108/64; PULSE 76; TEMP 98.3
--- NOTE | 2017-04-15 16:21 | CP.PCM.PN ---
Subjective - Date & Time of Evaluation Date of Evaluation: 04/15/17 Time of Evaluation: 12:30 - Subjective Subjective: Infectious Disease Follow Up: April 15, 2017 51 yo female who is morbidly obese presenting for 2 day history of induration of the left suprapubic abdomen. There had been drainage that the patient has been changing about every hour. Patient denies fever or chills. I last saw the patient 5 years ago. The patient follows with Dr. Durbin for her PMD. The patient taking Metformin for DM treatment. CT scan did not show abscess or inflammatory process. Surgery has evaluated the patient. Cultures negative to date. Remains on IV antibiotics. Patient with one abscess site I&D in ER. On antibiotics. No further intervention by surgery. Remains on Teflaro for antibiotic use. Surgery performed another I&D on the abdominal site during the [facility] stay. Patient complains of vague abdominal pains. Packing removed and surgery has allowed the patient to shower. MRSA from abdominal wounds/abscesses. Remains on Teflaro for treatment. Possible discharge home today. Objective - Vital Signs/Intake and Output Vital Signs (last 24 hours): Temp Pulse Resp BP Pulse Ox 98.3 F 76 18 108/64 98 04/15/17 11:44 04/15/17 11:44 04/15/17 11:44 04/15/17 11:44 04/15/17 11:44 Intake and Output: 04/15/17 04/15/17 06:59 18:59 Intake Total 520 Balance 520 - Labs Labs: 04/09/17 06:20 04/09/17 06:20 - Constitutional Appears: Non-toxic, No Acute Distress, Chronically Ill - Head Exam Head Exam: ATRAUMATIC, NORMOCEPHALIC - Eye Exam Eye Exam: EOMI, PERRL Pupil Exam: NORMAL ACCOMODATION, PERRL - ENT Exam ENT Exam: Mucous Membranes Moist, Normal External Ear Exam, TM's Normal Bilaterally - Neck Exam Neck Exam: Full ROM, Normal Inspection - Respiratory Exam Respiratory Exam: Clear to Ausculation Bilateral, NORMAL BREATHING PATTERN. absent: Rales, Rhonchi, Wheezes - Cardiovascular Exam Cardiovascular Exam: REGULAR RHYTHM, RRR, +S1, +S2 - GI/Abdominal Exam GI & Abdominal Exam: Soft, Normal Bowel Sounds. absent: Distended, Tenderness Additional comments: large pannus - Extremities Exam Extremities Exam: Full ROM, Normal Inspection - Neurological Exam Neurological Exam: Alert, Awake, CN II-XII Intact, Oriented x3 - Psychiatric Exam Psychiatric exam: Normal Affect, Normal Mood - Skin Skin Exam: Intact, Normal Color Assessment and Plan - Assessment and Plan (Free Text) Assessment: 51 yo female with left suprapubic abscess requiring I&D. Patient developed redness of skin and itchiness when given Vancomycin. Unclear if this was an allergic reaction versus Red-Man syndrome associated with rapid infusion of Vancomycin IV. Rash is not present as time of my exam. Patient did not have an allergy to Vancomycin when I last saw the patient 5 yeas ago. We will continue with Teflaro for now and monitor. Surgery evaluation done. CT scan of the area done and did not show visible abscess. The patient does states chills and subjective fevers on admission. She makes vague complaints when asked about symptoms now. Difficult to assess level of improvement due to large pannus. Surgery I&D another potential abscess on the abdomen/pannus yesterday. Supportive care. Cultures showing MRSA... Teflaro will cover treatment of MRSA. On Contact isolation. Continue with Teflaro until ready for discharge. On discharge, the patient can receive oral doxycycline 100mg BID for 10 days more for treatment. Would also place mupirocin ointment to the wound sites as well twice a day. Thank you for allowing me to participate in the care of the patient, we will follow with you.
--- NOTE | 2017-04-16 01:11 | DS ---
DISCHARGE DIAGNOSES: Abdominal wall cellulitis, improved; type 2 diabetes mellitus; morbid obesity; chronic hypertension; asthmatic bronchitis; anemia of chronic disease; degenerative arthritis; peripheral neuropathy; status post incision and drainage of abdominal wall furuncles. CONSULTANTS: Dr. Nikolay Anand from Surgery, Dr. Mikey Wagner from Infectious Disease. DISPOSITION: Home. The patient will follow up with her PMD, Dr. Milind Durbin within the following 72 hours. DISCHARGE DIET: 2 g sodium, diabetic heart-healthy. DISCHARGE MEDICATIONS: Doxycycline 100 mg p.o. b.i.d. #20, no refills, Bactroban ointment to her abdominal wall wounds b.i.d. x10 days. She also will continue losartan and hydrochlorothiazide 100 - 12.5 one tablet daily and metformin 1000 mg p.o. b.i.d. while applying Bactroban ointment to her healing wounds on the abdominal wall b.i.d. daily. SUMMARY: This 51-year-old female was admitted to [facility] with abdominal wall cellulitis in the setting of infected furuncles that were lanced and drained by Dr. Nikolay Anand from Surgery. She was followed throughout her hospital course by Dr. Mikey Wagner from Infectious Disease who prescribed Teflaro 600 mg IV q. 12 h., and the patient was noted on incision and drainage of furuncles to have MRSA. The patient was placed on isolation precautions. Her clinical course was remarkable for marked improvement in the draining wounds and abdominal wall cellulitis and at the time of discharge, temperature was 98.3, respirations 18, pulse 76 and blood pressure 108/64 with a pulse ox of 98% room air. Discharge white count 9400, hemoglobin 11.1, hematocrit 35.4, platelets 337,000. Blood sugar 122. Sodium 141, K 4.2, chloride 105, bicarb 29, BUN 13, creatinine 0.9, and calcium level 8.9. The patient is discharged to home, has been advised to follow up with her PMD within the next 48 hours and to represent to [facility] ER for any change in signs and symptoms. Greater than thrity five minutes was spent in the discharge management of this patient. All of the above was reviewed in detail with the patient, nursing, co-consultants. All questions were answered. Kenna Palafox MD [facility] # [id number] TAMRA
--- NOTE | 2017-04-16 09:06 | PN ---
DATE: 04/14/2017 SUBJECTIVE: This 51-year-old female was examined and case was reviewed with herself, nursing and physical therapy. She remains hospitalized with MRSA cellulitis of the abdominal wall that is improving on IV antibiotic therapy. The patient has had surgery performed of incision and drainage of multiple boils on her abdomen wall that has now started to heal. The patient denies any fever, chills, chest pain or shortness of breath and is cooperating with nursing, wound care and physical and occupational therapy. PHYSICAL EXAMINATION: VITAL SIGNS: Temperature was 97.8, respirations 18, pulse 61, and blood pressure 136/66 with the pulse ox of 96% on room air. HEENT: Head normocephalic, atraumatic. Eyes: No icterus. Ears: Clear. Throat: Noninjected. NECK: Supple. HEART: Regular, S1 and S2. LUNGS: Clear. ABDOMEN: Obese and nontender with improving abdominal wall cellulitis. No rebound, no guarding. No tenderness. EXTREMITIES: No edema. SKIN: Without rash. NEUROLOGIC: Intact. PSYCHOLOGIC: Chronic anxiety. VASCULAR: Legs warm to touch. LABORATORY DATA: White count 9400, hemoglobin 11.1, hematocrit 35.4, and platelets 337,000. Random blood sugar 138, sodium 141, K 4.2, chloride 105, bicarb 29, BUN 13, creatinine 0.9, and calcium 8.9. IMPRESSION: This is a morbidly obese 51-year-old female initially admitted with cellulitis of the abdominal wall secondary to abdominal wall obesity and requiring incision and drainage of multiple furuncles by surgery who have now cleared the patient from their perspective. The patient remains on wound isolation and is receiving IV Teflaro 600 mg IV q.12 hours for treatment of MRSA cellulitis. She also has comorbidities of chronic insomnia, morbid obesity, anxiety neurosis, chronic hypertension, type 2 diabetes mellitus, degenerative arthritis, spinal arthritis, and peripheral neuropathy. PLAN: At present as discussed with the patient and nursing is to maintain wound care precautions and MRSA isolation. She remains on a heart-healthy diabetic diet and is instructed to cleanse her abdominal wall with soap and water daily and to have warm soaks placed on the incision and drainage sites q.1 hour. She continues on Teflaro 600 mg IV q.12 hours, Neurontin 600 mg has been increased to b.i.d., insulin protocol a.c. meals and at bedtime low-dose, dual nebulizer q.4 hours p.r.n. shortness of breath, Cozaar 100 mg p.o. daily, Benadryl 25 mg p.o. q.6 hours p.r.n. pruritus, and Ambien 5 mg p.o. at bedtime p.r.n. insomnia. I have asked the nursing staff to have Dr. Wagner reexamine her abdominal wall cellulitis today and to clarify with the patient whether the current therapy is adequate or requires any further intervention from surgical consultants. All of the above was discussed in detail. Greater than 35 minutes was spent in the care management, review of orders, labs, medications, and procedures for this patient today. All questions were answered. Kenna Palafox MD MTDD
--- NOTE | 2017-04-16 09:06 | PN ---
DATE: 04/13/2017 SUBJECTIVE: This 51-year-old female was examined at the bedside. Her case was reviewed with herself, her mother at the bedside and her nurse, Radha Garcia, registered nurse. The patient was seen in followup by Dr. Mikey Wagner from Infectious Disease. He is aware of her latest microbiology reports on a recent incision and drainage. Wound cultures are showing methicillin-resistant Staph aureus. He feels her current treatment with IV Teflaro is appropriate and that the patient should continue with cleansing of the area with showering and warm soaks and local wound care as recommended by Dr. Nikolay Anand from Surgery. The patient denies any fever or chills, is cooperating with nursing staff and physical therapy. She did complain of worsening neuropathy on reduced Neurontin dosing and states that she has occasional pruritus which she associates with eczema. She is requesting p.r.n. Benadryl. PHYSICAL EXAMINATION: VITAL SIGNS: Temperature 98.3, respirations 18, pulse 56, blood pressure 110/66. Pulse ox 100% room air. HEENT: Head: Normocephalic, atraumatic. Eyes: No icterus. Ears: Clear. Throat: Noninjected. NECK: Supple. HEART: Regular S1, S2. LUNGS: Clear. ABDOMEN: Obese. EXTREMITIES: No clubbing, no cyanosis, no edema. SKIN: Improving cellulitis on her abdominal wall. VASCULAR: Legs warm to touch. PSYCHOLOGICAL: Alert and oriented x3. Positive anxiety. NEUROLOGIC: Intact. LABORATORY DATA: White count 9400, hemoglobin 11.1, hematocrit 35.4, platelets 337,000. Random blood sugar 79. Sodium 141, K 4.2, chloride 105, bicarb 29, BUN 13, creatinine 0.9, calcium 8.9. IMPRESSION: A 51-year-old female with abdominal wall cellulitis in the setting of recently lanced furuncles that are now growing methicillin-resistant Staph aureus on IV Teflaro therapy under the direction of Dr. Mikey Wagner from Infectious Disease. The patient has had I&D of her abdominal wall abscesses and has been cleared by Dr. Nikolay Anand from Surgery to continue local wound care with showering, warm compresses and leaving the area open to air to dry. She also has comorbidities of morbid obesity, chronic insomnia, anxiety neurosis, chronic hypertension, type 2 diabetes mellitus, degenerative arthritis, peripheral neuropathy and eczema. The plan as discussed with the patient, Surgery, Infectious Disease, nursing and family will be to continue IV Teflaro 600 mg IV q. 12 hours, and the patient remains on isolation precautions given her recent diagnosis of MRSA. She is ordered to have Neurontin, now increased to 600 mg p.o. b.i.d., regular low-dose insulin protocol before meals and at bedtime, Cozaar 100 mg p.o. daily, Benadryl 25 mg p.o. q. 6 hours p.r.n. pruritus and Ambien 5 mg p.o. at bedtime p.r.n. sleep. She continues on a heart-healthy diabetic diet. She is ordered to have warm soaks to her abdominal wall I&D areas q. 1 hour. She is completing physical therapy for reconditioning and gait training and ultimate plan will be for discharge to home when medically stable and cleared by Infectious Disease. All of the above was discussed in detail with the patient, nursing, co-consultants, family, physical therapy, occupational therapy and case management. Greater than 35 minutes was spent in the care and review of this care and management of this patient today. All questions were answered. Kenna Palafox MD MTDD
== END 2017-04-15 15:13 | disposition home or self-care (01) | DRG 603 ==
LOC: TRCU 18:26
PROVIDERS: ADMIT Internal Medicine; ATTEND Internal Medicine
PROC: F07Z9ZZ Gait Training/Functional Ambulation Treatment (ICD-10-PCS; principal; 2017-04-09)
PROC: F07M6ZZ Therapeutic Exercise Treatment of Musculoskeletal System - Whole Body (ICD-10-PCS; 2017-04-09)
PROC: F08Z4ZZ Home Management Treatment (ICD-10-PCS; 2017-04-09)
PROC: 0H97XZZ Drainage of Abdomen Skin, External Approach (ICD-10-PCS; 2017-04-10)
DX: L03.311 Cellulitis of abdominal wall (principal); E11.42 Type 2 diabetes mellitus with diabetic polyneuropathy; Z68.43 Body mass index [BMI] 50.0-59.9, adult; D63.8 Anemia in other chronic diseases classified elsewhere; E66.01 Morbid (severe) obesity due to excess calories; E78.5 Hyperlipidemia, unspecified; F41.1 Generalized anxiety disorder; F51.04 Psychophysiologic insomnia; G47.33 Obstructive sleep apnea (adult) (pediatric); I10 Essential (primary) hypertension; J45.909 Unspecified asthma, uncomplicated; L02.211 Cutaneous abscess of abdominal wall; L30.9 Dermatitis, unspecified; M46.90 Unspecified inflammatory spondylopathy, site unspecified; Z78.9 Other specified health status; Z79.899 Other long term (current) drug therapy; F17.210 Nicotine dependence, cigarettes, uncomplicated; B95.62 Methicillin resistant Staphylococcus aureus infection as the cause of diseases classified elsewhere; Z90.710 Acquired absence of both cervix and uterus; Z88.1 Allergy status to other antibiotic agents